=== PATIENT | female | born 1985 | race Caucasian/White ===

== ENCOUNTER 2016-07-09 07:28 | Emergency (ER) | payer OTHER ==
[2016-07-09 08:01] VITALS: BP 115/76; PULSE 93; RESP 18; TEMP 100.6
[2016-07-09] MEDS ORDERED: ONDANSETRON 4 MG ODT STARTER PACK 2 TAB BTL PO STA (08:18)
[2016-07-09] MEDS ORDERED: ONDANSETRON ODT 4 MG TAB PO STA (08:18)
--- NOTE | 2016-07-09 08:21 | ED ---
General Adult HPI - General Chief complaint: Nausea/Vomiting/Diarrhea Stated complaint: cough,chills,vomiting Time Seen by Provider: 07/09/16 08:00 Source: patient, family, RN notes reviewed Mode of arrival: ambulatory Limitations: no limitations - History of Present Illness Initial comments: This is a 31-year-old female who presents to the emergency department stating that she started vomiting at 2:30 this morning has vomited a few times. Patient states she thinks she has a low-grade fever as well. Patient states she has no abdominal pain she has had no episode of diarrhea however. Patient denies any chest pain difficulty breathing or shortness of breath. Patient denies any headache patient denies numbness weakness. Patient denies any dysuria hematuria urinary frequency. Patient does not feel lightheaded dizzy or near syncopal. Patient denies headache - Related Data Home Medications Medication Instructions Recorded Confirmed No Known Home Medications [No 07/09/16 07/09/16 Known Home Medications] Allergies Allergy/AdvReac Type Severity Reaction Status Date / Time No Known Allergies Allergy Verified 07/09/16 08:01 Review of Systems ROS Statement: Those systems with pertinent positive or pertinent negative responses have been documented in the HPI. ROS Other: All systems not noted in ROS Statement are negative. Past Medical History Past Medical History: No Reported History Additional Past Medical History / Comment(s): kidney stones, gest DM- diet controlled History of Any Multi-Drug Resistant Organisms: None Reported Past Surgical History: Tonsillectomy Additional Past Surgical History / Comment(s): at age 7 Past Anesthesia/Blood Transfusion Reactions: No Reported Reaction Past Psychological History: Anxiety, Bipolar, Depression Additional Psychological History / Comment(s): no currently medicated Smoking Status: Former smoker Past Alcohol Use History: None Reported Past Drug Use History: None Reported - Past Family History Mother Family Medical History: Diabetes Mellitus General Exam - General Exam Comments Initial Comments: GENERAL: Patient is well-developed and well-nourished. Patient is nontoxic and well- hydrated and is in no acute distress. ENT: Neck is soft and supple. No significant lymphadenopathy is noted. Oropharynx is clear. Moist mucous membranes. Neck has full range of motion without eliciting any pain. EYES: The sclera were anicteric and conjunctiva were pink and moist. PULMONARY: Unlabored respirations. Good breath sounds bilaterally. CARDIOVASCULAR: There is a regular rate and rhythm without any murmurs gallops or rubs. ABDOMEN: Soft and nontender with normal bowel sounds. No palpable organomegaly was noted. There is no palpable pulsatile mass. SKIN: Skin is clear with no lesions or rashes and otherwise unremarkable. NEUROLOGIC: Patient is alert and oriented x3. Cranial nerves II through XII are grossly intact. Motor and sensory are also intact. Normal speech, volume and content. Symmetrical smile. MUSCULOSKELETAL: Normal extremities with adequate strength and full range of motion. No lower extremity swelling or edema. No calf tenderness. LYMPHATICS: No significant lymphadenopathy is noted PSYCHIATRIC: Normal psychiatric evaluation. Limitations: no limitations Course Vital Signs 07/09/16 07:58 Temperature 100.6 F H Pulse Rate 93 Respiratory 18 Rate Blood Pressure 115/76 O2 Sat by Pulse 96 Oximetry Disposition Clinical Impression: Gastroenteritis Disposition: HOME SELF-CARE Condition: Good Instructions: Gastroenteritis (ED) Additional Instructions: Patient should take Zofran as prescribed. Patient should take Tylenol or Motrin for any fevers after she is holding down fluids. Referrals: Eric Parra MD [Primary Care Provider] - 1-2 days Time of Disposition: 08:21
== END 2016-07-09 08:42 | disposition home or self-care (01) ==
LOC: EC 07:28
DX: K52.9 Noninfective gastroenteritis and colitis, unspecified (principal); Z87.442 Personal history of urinary calculi
CPT/HCPCS: 99283; S0119; 99282

== ENCOUNTER 2016-07-13 07:18 | Emergency (ER) | payer OTHER ==
[2016-07-13 07:52] VITALS: BP 136/85; PULSE 78; RESP 18; TEMP 98.3
[2016-07-13] MEDS ORDERED: predniSONE 50 MG TAB PO STA (08:13)
[2016-07-13] MEDS ORDERED: FAMOTIDINE 20 MG TAB PO STA (08:14)
--- NOTE | 2016-07-13 08:18 | ED ---
Skin/Abscess/FB HPI - General Chief complaint: Skin/Abscess/Foreign Body Stated complaint: RASH Time Seen by Provider: 07/13/16 07:50 Source: patient, RN notes reviewed Mode of arrival: ambulatory Limitations: no limitations - History of Present Illness Initial comments: This is a 31-year-old female who was recently delivered a baby. The onset over last couple days of a itchy erythematous rash that is diffuse over her extremities and her trunk. He gets worse with hot environment. She was seen at an outpatient urgent care and told she may have been bug bites. She states it still very itchy. She is concerned. She does state that she started using a new fabric softener about 2 weeks ago which she never used before otherwise no new materials in her environment including soaps or detergents clothing. complaint: rash - Related Data Home Medications Medication Instructions Recorded Confirmed FLUoxetine HCL [PROzac] 20 mg PO DAILY 07/13/16 07/13/16 lamoTRIgine [LaMICtal] 50 mg PO HS 07/13/16 07/13/16 Previous Rx's Medication Instructions Recorded Famotidine [Pepcid] 20 mg PO BID #14 tablet 07/13/16 predniSONE 20 mg PO BID #10 tab 07/13/16 Allergies Allergy/AdvReac Type Severity Reaction Status Date / Time No Known Allergies Allergy Verified 07/13/16 07:56 Review of Systems ROS Statement: Those systems with pertinent positive or pertinent negative responses have been documented in the HPI. ROS Other: All systems not noted in ROS Statement are negative. Past Medical History Past Medical History: No Reported History Additional Past Medical History / Comment(s): kidney stones, gest DM- diet controlled History of Any Multi-Drug Resistant Organisms: None Reported Past Surgical History: Tonsillectomy Additional Past Surgical History / Comment(s): at age 7 Past Anesthesia/Blood Transfusion Reactions: No Reported Reaction Past Psychological History: Anxiety, Bipolar, Depression Additional Psychological History / Comment(s): no currently medicated Smoking Status: Former smoker Past Alcohol Use History: None Reported Past Drug Use History: None Reported - Past Family History Mother Family Medical History: Diabetes Mellitus General Exam - General Exam Comments Initial Comments: This a well-developed well-nourished awake alert oriented x3 female Limitations: no limitations General appearance: alert, anxious Head exam: Present: atraumatic, normocephalic, normal inspection Eye exam: Present: normal appearance, PERRL, EOMI. Absent: scleral icterus, conjunctival injection, periorbital swelling ENT exam: Present: normal exam, mucous membranes moist Neck exam: Present: normal inspection. Absent: tenderness, meningismus, lymphadenopathy Respiratory exam: Present: normal lung sounds bilaterally. Absent: respiratory distress, wheezes, rales, rhonchi, stridor Cardiovascular Exam: Present: regular rate, normal rhythm, normal heart sounds. Absent: systolic murmur, diastolic murmur, rubs, gallop, clicks GI/Abdominal exam: Present: soft Extremities exam: Present: full ROM, normal capillary refill Back exam: Present: full ROM, rash noted. Absent: tenderness Neurological exam: Present: alert, oriented X3, CN II-XII intact Psychiatric exam: Present: normal affect, normal mood Skin exam: Present: warm, dry, intact, erythema, other (There is erythematous urticarial type rash seen over the hands the arms the abdominal wall some on the back on the feet consistent with ALLERGIC reaction no evidence of any insect bites.). Absent: normal color Course Vital Signs 07/13/16 07:50 Temperature 98.3 F Pulse Rate 78 Respiratory 18 Rate Blood Pressure 136/85 O2 Sat by Pulse 94 L Oximetry Medical Decision Making - Medical Decision Making The presentation is consistent with a ALLERGIC reaction/urticaria reaction likely to the snuggle fabrics softener she was using to be placed on appropriate medication we did discuss hot versus cold environments and the need to not scratch any itchy areas. Disposition Clinical Impression: Contact dermatitis, Urticaria Disposition: HOME SELF-CARE Condition: Good Instructions: Contact Dermatitis (ED), Urticaria (ED) Additional Instructions: [id number] Benadryl 25 mg every 6 hours as needed cool compresses to any itchy area Prescriptions: Famotidine [Pepcid] 20 mg PO BID #14 tablet predniSONE 20 mg PO BID #10 tab
== END 2016-07-13 08:42 | disposition home or self-care (01) ==
LOC: EC 07:18
DX: R21 Rash and other nonspecific skin eruption (principal); L50.9 Urticaria, unspecified; L25.9 Unspecified contact dermatitis, unspecified cause; F41.0 Panic disorder [episodic paroxysmal anxiety]; F31.9 Bipolar disorder, unspecified; Z87.891 Personal history of nicotine dependence; Z79.899 Other long term (current) drug therapy
CPT/HCPCS: 99282; J7512

== ENCOUNTER → 2016-07-22 | Outpatient (CLI) | payer OTHER ==
[2016-07-22 08:49] LABS: Basophils # (A) 0.1 k/uL (0-0.2); Basophils % (A) 1 %; CH 29.4; CHCM 33.7; Eosinophils # (A) 0.2 k/uL (0-0.7); Eosinophils % (A) 2 %; HDW 2.63; HGB 14.3 gm/dL (11.4-16.0); Luc # (Auto) 0.08; Luc % (Auto) 1; Lymphocytes # (A) 2.1 k/uL (1.0-4.8); Lymphocytes % (A) 25 %; MCH 28.6 pg (25.0-35.0); MCHC 32.6 g/dL (31.0-37.0); MCV 87.7 fL (80.0-100.0); Mean Platelet Volume 7.4; Monocytes # (A) 0.5 k/uL (0-1.0); Monocytes % (A) 6 %; Neutrophils # (A) 5.6 k/uL (1.3-7.7); Neutrophils % (A) 65 %; RBC 5.01 m/uL (3.80-5.40); RDW 12.8 % (11.5-15.5); WBC 8.5 k/uL (3.8-10.6); WBC (Perox) 8.63
== END | disposition home or self-care (01) ==
LOC: LABPAT 08:23
PROVIDERS: ATTEND Obstetrics & Gynecology
DX: Z01.812 Encounter for preprocedural laboratory examination (principal)
CPT/HCPCS: 85025

== ENCOUNTER 2016-08-11 06:59 | Day surgery (SDC) | payer OTHER ==
[2016-07-25 10:05] VITALS: BMI 37.4
[~2016-08-11 06:59] MED LIST: DEXAMETHASONE SOD PHOSPHATE 10 MG/ML 1 ML VIAL IV ONE; LACTATED RINGERS 1,000 ML IV SCH; LIDOCAINE 1% 20 ML VIAL (10MG/ML) FOR IV START INTRADERMA PRN; MIDAZOLAM 2 MG/2 ML VIAL IV PRN; Pre Op ABX Message 1 EACH MISC MISCELLANE ONE; SCOPOLAMINE 1.5MG/72HR PATCH TRANSDERM ONE
--- NOTE | 2016-08-11 07:45 | P.HPOB ---
History of Present Illness H&P Date: 08/11/16 Chief Complaint: Family planning Patient is a 31-year-old female was completed family planning desires permanent sterilization. Risks/benefits/alternatives to laparoscopic tubal occlusion were discussed with the patient in detail and all questions were answered for her prior to proceeding to the operating room. Physical exam vital signs are stable and afebrile. Heart regular, lungs clear, extremities without pain. Abdomen soft positive bowel sounds are noted. Assessment family planning. Plan laparoscopic tubal occlusion with Filshie clips. Past Medical History Past Medical History: No Reported History Additional Past Medical History / Comment(s): Hx kidney stones, gest DM- diet controlled.BRONCHITIS History of Any Multi-Drug Resistant Organisms: None Reported Past Surgical History: Tonsillectomy Additional Past Surgical History / Comment(s): at age 7 Past Anesthesia/Blood Transfusion Reactions: No Reported Reaction Past Psychological History: Anxiety, Bipolar, Depression Additional Psychological History / Comment(s): no currently medicated Smoking Status: Former smoker Past Alcohol Use History: None Reported Additional Past Alcohol Use History / Comment(s): Smoked 1 PPD for 1 yr, quit 2006 Past Drug Use History: None Reported - Past Family History Mother Family Medical History: Diabetes Mellitus Medications and Allergies Home Medications Medication Instructions Recorded Confirmed Type FLUoxetine HCL [PROzac] 20 mg PO DAILY 07/13/16 07/25/16 History lamoTRIgine [LaMICtal] 50 mg PO HS 07/13/16 07/25/16 History Allergies Allergy/AdvReac Type Severity Reaction Status Date / Time No Known Allergies Allergy Verified 07/25/16 09:49 Exam Osteopathic Statement: *. No significant issues noted on an osteopathic structural exam other than those noted in the History and Physical/Consult. - OBG Physical Exam Breast: both: normal (no masses) Abdomen: bowel sounds normal, no diffuse tenderness, no bruit present, no guarding noted, no hepatomegaly, no splenomegaly, no mass Vulva: both: normal Vagina: normal moisture, no discharge Cervix: no lesion, no discharge Uterus: normal size, normal contour Adnexa: both: normal Anus/Rectum: normal perianal skin, no rectal mass, no hemorrhoids, heme negative
[2016-08-11] MEDS: ONDANSETRON 4 MG/2 ML VIAL IVP ONE ×2 (08:21→09:29)
[2016-08-11] MEDS ORDERED: SUCCINYLCHOLINE CHLORIDE 100 MG/5 ML SYR IV ONE (08:32)
[2016-08-11] MEDS ORDERED: LIDOCAINE 1% INJ 10MG/ML (20 ML MDV) ONE (08:32)
[2016-08-11] MEDS ORDERED: KETOROLAC 30 MG/ML 1 ML VIAL ONE (08:32)
[2016-08-11] MEDS ORDERED: MIDAZOLAM 2 MG/2 ML VIAL ONE (08:32)
[2016-08-11] MEDS ORDERED: fentaNYL (PF) 50 MCG/ML 2 ML AMP ONE (08:32)
[2016-08-11] MEDS ORDERED: PROPOFOL 10 MG/ML 20 ML VIAL IV ONE (08:32)
[2016-08-11] MEDS ORDERED: BUPIVACAINE (PF) 0.25% 30 ML VIAL SQ ONE ×2 (08:51→08:55)
--- NOTE | 2016-08-11 09:12 | P.OP ---
Date of Procedure: 08/11/16 Preoperative Diagnosis: Family planning Postoperative Diagnosis: Same Procedure(s) Performed: Laparoscopic tubal occlusion with Filshie clips Anesthesia: DINH Surgeon: Domenico Barreto Estimated Blood Loss (ml): 3 Urine output (ml): 20 Pathology: none sent Condition: stable Disposition: same day Operative Findings: Normal uterus, tubes, ovaries Description of Procedure: Patient was taken to the operating suite where a general anesthetic was found be adequate. She was prepped and draped in the normal sterile fashion placed in the dorsal lithotomy position. Initially a speculum was inserted in the vagina and the anterior lip cervix was identified and grasped with single-tooth tenaculum. [place] manipulator was present inserted and the speculum was removed. Red rubber catheter was then used to drain the bladder of urine and then was removed. Allis were then changed and attention was turned to the abdominal portion of the procedure. Approximately 4 mL of quarter percent Marcaine were then injected periumbilically. Through this injected anesthetic a 5 mm skin incision was made and through this incision under direct visualization with an optical trocar and sleeve the camera was inserted. Once peritoneal placement was assured gas was allowed to fully insufflate the abdomen and patient was placed in steep Trendelenburg position. A second port and sleeve were then inserted 3 cm above the pubic symphysis in the midline and this was 8 mm incision. Through this incision an 8 mm trocar and sleeve were inserted under direct visualization. Observations of the pelvis was then done seeing no gross abnormalities first the right tube than the left tube had a Filshie clip applied 2 cm from uterine cornu. C no bleeding from the mesosalpinx instruments were removed and gas was allowed to fully expel from the abdomen. 5 deep breaths were provided during this process. Once this was completed trochars removed and 4-0 Vicryl was used to close incision subcuticularly. The remaining 6 mL of quarter percent Marcaine were then injected around these incisions. Sponge, lap, needle counts were all correct 2. Patient was taken to the recovery room in stable condition. Plan - Discharge Summary New Discharge Prescriptions: Acetaminophen-Codeine 300-30mg [Tylenol #3] 1 tab PO Q4H PRN #30 tablet PRN Reason: Pain Ibuprofen [Motrin] 600 mg PO Q6HR PRN #30 tab PRN Reason: Pain Discharge Medication List FLUoxetine HCL [PROzac] 20 mg PO DAILY 07/13/16 [History] lamoTRIgine [LaMICtal] 50 mg PO HS 07/13/16 [History] Acetaminophen-Codeine 300-30mg [Tylenol #3] 1 tab PO Q4H PRN #30 tablet [Rx] Ibuprofen [Motrin] 600 mg PO Q6HR PRN #30 tab 08/11/16 [Rx] Follow up Appointment(s)/Referral(s): Domenico Barreto DO [Doctor of Osteopathic Medicine] - 2 Weeks Activity/Diet/Wound Care/Special Instructions: No heavy lifting, limit stairs and driving and pelvic rest. If any high temperatures, heavy bleeding, or severe pain call my office
[2016-08-11 09:21] VITALS: TEMP 97.6
[2016-08-11] MEDS: HYDROmorphone 1 MG/ML 1 ML SYRINGE IVP PRN ×4 (09:25→10:07)
[2016-08-11] MEDS ORDERED: hydrALAZINE HCL 20 MG/ML 1 ML VIAL IVP ONE (10:06)
[2016-08-11] MEDS ORDERED: METOPROLOL TARTRATE 5 MG/5 ML VIAL IVP ONE (10:17)
[2016-08-11 10:31] VITALS: RESP 16
[2016-08-11 12:13] VITALS: BP 145/91; PULSE 70
== END 2016-08-11 12:16 | disposition home or self-care (01) ==
LOC: OR 06:59
PROVIDERS: ATTEND Obstetrics & Gynecology
DX: Z30.2 Encounter for sterilization (principal); E11.9 Type 2 diabetes mellitus without complications; F41.9 Anxiety disorder, unspecified; F31.9 Bipolar disorder, unspecified; F32.9 Major depressive disorder, single episode, unspecified; Z87.891 Personal history of nicotine dependence; Z79.899 Other long term (current) drug therapy
CPT/HCPCS: 81025; 58671; J2250; J0360; J1100; J2405; J2001; J3010; J1885; J1170; J0330; J2704

== ENCOUNTER → 2017-02-09 | Outpatient (CLI) | payer OTHER ==
[2017-02-09 12:00] LABS: CH 30.8; CHCM 34.6; HCT 41.8 % (34.0-46.0); HDW 2.75; MCH 30.1 pg (25.0-35.0); MCHC 33.6 g/dL (31.0-37.0); MCV 89.5 fL (80.0-100.0); Mean Platelet Volume 7.5; RBC 4.67 m/uL (3.80-5.40); RDW 12.8 % (11.5-15.5); WBC 7.2 k/uL (3.8-10.6)
--- NOTE | 2017-02-09 12:34 | US ---
EXAMINATION TYPE: US pelvic complete DATE OF EXAM: 02/09/2017 COMPARISON: NONE CLINICAL HISTORY: R10.2 Pelvic pain, N92.1 Menorrhagia w/irregular. Heavy, painful menses, irregular menses, tubal ligation 08/05 TECHNIQUE: Transabdominal (TA) Date of LMP: 01/23/17 EXAM MEASUREMENTS: Uterus: 8.9 x 4.2 x 5.2 cm Endometrial Stripe: 0.4 cm Right Ovary: 4.7 x 1.7 x 3.4 cm Left Ovary: 3.2 x 1.9 x 4.0 cm 1. Uterus: Anteverted appears wnl 2. Endometrium: appears wnl 3. Right Ovary: appears wnl 4. Left Ovary: dominant follicle = 1.4 x 1.5 x1.3cm 5. Bilateral Adnexa: wnl 6. Posterior cul-de-sac: wnl IMPRESSION: 1. No distinct abnormality appreciated at this time. Dominant follicle left ovary.
== END | disposition home or self-care (01) ==
LOC: RADUSWWP 11:02
PROVIDERS: ATTEND Obstetrics & Gynecology
DX: N92.1 Excessive and frequent menstruation with irregular cycle (principal); R10.2 Pelvic and perineal pain
CPT/HCPCS: 76856; 82670; 83001; 83002; 84146; 84443; 85027

== ENCOUNTER 2017-03-23 04:57 | Emergency (ER) | payer OTHER ==
--- NOTE | 2017-03-23 05:41 | ED ---
General Adult HPI - General Chief complaint: Abdominal Pain Stated complaint: back pain Time Seen by Provider: 03/23/17 05:07 Source: patient, RN notes reviewed Mode of arrival: ambulatory Limitations: no limitations - History of Present Illness Initial comments: 31-year-old female with no history of kidney stones presents for evaluation of right flank pain, radiating to the groin and right leg. This woke the patient from sleep. 10 out of 10. Pain was sharp in nature. Patient states this was similar to her previous kidney stones perches not had one in over a year. Denies any dysuria. Denies fever or chills. Denies vaginal discharge. Normal bowel movement within the last 24 hours. No vomiting she has had some nausea. No chest pain shortness of breath. At the time my evaluation patient's pain is improved, 2 out of 10. She does not know if she passed the stone in her urine. No other complaints. - Related Data Previous Rx's Medication Instructions Recorded Ibuprofen [Motrin] 600 mg PO Q8HR PRN #24 tab 03/23/17 Sulfamethox-Tmp 800-160Mg [Bactrim 1 tab PO Q12HR #14 tab 03/23/17 DS 800-160 mg] Tamsulosin HCl [Flomax] 0.4 mg PO DAILY #14 cap 03/23/17 Allergies Allergy/AdvReac Type Severity Reaction Status Date / Time No Known Allergies Allergy Verified 08/11/16 08:07 Review of Systems ROS Statement: Those systems with pertinent positive or pertinent negative responses have been documented in the HPI. ROS Other: All systems not noted in ROS Statement are negative. Past Medical History Past Medical History: No Reported History Additional Past Medical History / Comment(s): Hx kidney stones, gest DM- diet controlled.BRONCHITIS History of Any Multi-Drug Resistant Organisms: None Reported Past Surgical History: Tonsillectomy, Tubal Ligation Additional Past Surgical History / Comment(s): at age 7 Past Anesthesia/Blood Transfusion Reactions: No Reported Reaction Past Psychological History: Anxiety, Bipolar, Depression Smoking Status: Former smoker Past Alcohol Use History: Rare Past Drug Use History: None Reported - Past Family History Mother Family Medical History: Diabetes Mellitus General Exam Limitations: no limitations General appearance: alert, in no apparent distress Head exam: Present: atraumatic, normocephalic Eye exam: Present: normal appearance, PERRL ENT exam: Present: normal exam Neck exam: Present: normal inspection Respiratory exam: Present: normal lung sounds bilaterally, respiratory distress Cardiovascular Exam: Present: regular rate, normal rhythm GI/Abdominal exam: Present: soft. Absent: distended, tenderness Extremities exam: Present: normal inspection, full ROM Back exam: Present: normal inspection, CVA tenderness (R) Neurological exam: Present: alert, oriented X3 Psychiatric exam: Present: normal affect, normal mood Skin exam: Present: warm, dry, intact. Absent: cyanosis, diaphoretic Course Vital Signs 03/23/17 05:01 Temperature 98.4 F Pulse Rate 69 Respiratory 18 Rate Blood Pressure 133/82 O2 Sat by Pulse 98 Oximetry - Reevaluation(s) Reevaluation #1: 03/23/17 06:06 On reevaluation, patient is completely pain-free. She received no medication the emergency department. Medical Decision Making - Medical Decision Making 31-year-old female with history of kidney stones presents with signs and symptoms consistent with renal colic. Patient is pain-free on reevaluation. No imaging will be obtained at this time. Urinalysis shows 13 wbc's, there is significant amount of squamous cell. And rare bacteria. Urine culture is pending. No significant hematuria. Patient will be started on Flomax, given pain control, she will be empirically treated for UTI. She will follow-up with her primary care physician. Return to emergency department with worsening pain. Diagnosis: Renal colic, resolved - Lab Data Lab Results 03/23/17 03/23/17 Range/Units 05:15 05:15 Urine Color Yellow Urine Appearance Cloudy H (Clear) Urine pH 5.0 (5.0-8.0) Ur Specific [place] 1.021 (1.001-1.035) Urine Protein Trace H (Negative) Urine Glucose (UA) Negative (Negative) Urine Ketones Negative (Negative) Urine Blood Negative (Negative) Urine Nitrite Negative (Negative) Urine Bilirubin Negative (Negative) Urine Urobilinogen <2.0 (<2.0) mg/dL Ur Leukocyte Esterase Large H (Negative) Urine RBC 5 (0-5) /hpf Urine WBC 13 H (0-5) /hpf Ur Squamous Epith Cells 39 H (0-4) /hpf Urine Bacteria Rare H (None) /hpf Hyaline Casts 3 H (0-2) /lpf Urine Mucus Rare H (None) /hpf Urine HCG, Qual Not Detected (Not Detectd) Disposition Clinical Impression: Renal colic on right side Disposition: HOME SELF-CARE Condition: Good Instructions: Renal Colic (ED) Prescriptions: Ibuprofen [Motrin] 600 mg PO Q8HR PRN #24 tab PRN Reason: Pain Sulfamethox-Tmp 800-160Mg [Bactrim DS 800-160 mg] 1 tab PO Q12HR #14 tab Tamsulosin HCl [Flomax] 0.4 mg PO DAILY #14 cap Referrals: Eric Parra MD [Primary Care Provider] - 1-2 days
[2017-03-23 05:45] LABS: Appearance,Urine Cloudy (Clear); Bacteria,Urine Rare /hpf; Bilirubin,Urine Negative (Negative); Glucose,Urine (UA) Negative (Negative); Ketones,Urine Negative (Negative); Leukocyte Esterase,Urine Large (Negative); Mucus,Urine Rare /hpf; Nitrite,Urine Negative (Negative); Particle Count 19051; Protein,Urine Trace (Negative); RBC,Urine 5 /hpf (0-5); Specific Gravity,Urine 1.021 (1.001-1.035); Squamous Epithelial Cell,Urine 39 /hpf (0-4); UA Billing (MACRO vs. MICRO) MICRO; Urobilinogen,Urine <2.0 mg/dL (<2.0); WBC,Urine 13 /hpf (0-5)
[2017-03-23 06:26] VITALS: BP 130/97; PULSE 71; RESP 16; TEMP 98.3
== END 2017-03-23 06:22 | disposition home or self-care (01) ==
LOC: EC 04:57
DX: N23 Unspecified renal colic (principal); Z87.891 Personal history of nicotine dependence
CPT/HCPCS: 81001; 81025; 87086; 99284

== ENCOUNTER → 2017-06-08 | Outpatient (CLI) | payer OTHER ==
[2017-06-08 10:22] LABS: Basophils # (A) 0.1 k/uL (0-0.2); Basophils % (A) 1 %; CH 29.6; CHCM 34.1; Eosinophils # (A) 0.1 k/uL (0-0.7); Eosinophils % (A) 1 %; HCT 42.7 % (34.0-46.0); HDW 2.56; HGB 14.3 gm/dL (11.4-16.0); Luc % (Auto) 2; Lymphocytes # (A) 1.9 k/uL (1.0-4.8); Lymphocytes % (A) 29 %; MCH 29.3 pg (25.0-35.0); MCHC 33.5 g/dL (31.0-37.0); MCV 87.4 fL (80.0-100.0); Mean Platelet Volume 7.3; Monocytes # (A) 0.3 k/uL (0-1.0); Monocytes % (A) 5 %; Neutrophils # (A) 4.1 k/uL (1.3-7.7); Neutrophils % (A) 62 %; RBC 4.88 m/uL (3.80-5.40); RDW 13.3 % (11.5-15.5); WBC 6.6 k/uL (3.8-10.6); WBC (Perox) 6.49
== END | disposition home or self-care (01) ==
LOC: LABPAT 09:40
PROVIDERS: ATTEND Obstetrics & Gynecology
DX: Z01.812 Encounter for preprocedural laboratory examination (principal)
CPT/HCPCS: 36415; 85025

== ENCOUNTER → 2017-06-22 | Outpatient (CLI) | payer OTHER ==
--- NOTE | 2017-06-22 11:46 | XR ---
EXAMINATION TYPE: XR chest 2V DATE OF EXAM: 06/22/2017 COMPARISON: NONE TECHNIQUE: PA and lateral views submitted. HISTORY: Cough and congestion FINDINGS: The lungs are clear and there is no pneumothorax, pleural effusion, or focal pneumonia. IMPRESSION: 1. No acute process.
== END | disposition home or self-care (01) ==
LOC: RADXRMAIN 11:16
PROVIDERS: ATTEND Internal Medicine
DX: R05 Cough (principal)
CPT/HCPCS: 71046

== ENCOUNTER 2017-09-24 18:27 | Emergency (ER) | payer OTHER ==
[2017-09-24] MEDS ORDERED: KETOROLAC 30 MG/ML 1 ML VIAL IVP STA (19:47)
[2017-09-24] MEDS ORDERED: ONDANSETRON 4 MG/2 ML VIAL IVP STA (19:47)
[2017-09-24] MEDS ORDERED: SODIUM CHLORIDE 0.9% 1,000 ML IV STA (19:47)
[2017-09-24 20:21] LABS: Basophils % (A) 0 %; Eosinophils # (A) 0.2 k/uL (0-0.7); Eosinophils % (A) 2 %; HCT 44.5 % (34.0-46.0); HGB 15.2 gm/dL (11.4-16.0); Lymphocytes % (A) 30 %; MCH 29.3 pg (25.0-35.0); MCHC 34.1 g/dL (31.0-37.0); Mean Platelet Volume 7.1; Monocytes # (A) 0.5 k/uL (0-1.0); Monocytes % (A) 5 %; Neutrophils # (A) 6.2 k/uL (1.3-7.7); Neutrophils % (A) 62 %; Platelet Count 342 k/uL (150-450); RBC 5.18 m/uL (3.80-5.40); RDW 12.4 % (11.5-15.5)
[2017-09-24 20:24] LABS: Appearance,Urine Clear (Clear); Bacteria,Urine Rare /hpf; Bilirubin,Urine Negative (Negative); Blood,Urine Small (Negative); Color,Urine Yellow; Glucose,Urine (UA) Negative (Negative); Ketones,Urine Negative (Negative); Leukocyte Esterase,Urine Small (Negative); Nitrite,Urine Negative (Negative); PH, Urine 6.5 (5.0-8.0); Protein,Urine Negative (Negative); RBC,Urine 4 /hpf (0-5); Specific Gravity,Urine 1.019 (1.001-1.035); Squamous Epithelial Cell,Urine 3 /hpf (0-4); WBC,Urine 8 /hpf (0-5)
[2017-09-24 20:29] LABS: ALT 28 U/L (9-52); AST 21 U/L (14-36); Albumin 4.4 g/dL (3.5-5.0); Alkaline Phosphatase 64 U/L (38-126); Amylase 73 U/L (30-110); Anion Gap 14 mmol/L; Blood Urea Nitrogen 18 mg/dL (7-17); Calcium 9.4 mg/dL (8.4-10.2); Carbon Dioxide 26 mmol/L (22-30); Chloride 103 mmol/L (98-107); Glucose 87 mg/dL (74-99); Lipase 204 U/L (23-300); Potassium 4.3 mmol/L (3.5-5.1); Sodium 143 mmol/L (137-145); Total Bilirubin 0.3 mg/dL (0.2-1.3); Total Protein 7.3 g/dL (6.3-8.2)
--- NOTE | 2017-09-24 20:41 | XR ---
EXAMINATION TYPE: XR KUB DATE OF EXAM: 09/24/2017 COMPARISON: NONE INDICATION: Abdomen pain right flank pain TECHNIQUE: Single view abdomen upright view FINDINGS: There is a normal bowel gas pattern. Psoas margins are normal. No suspicious calcifications are evident. No organomegaly is present. Surgical clips are within the pelvis. IMPRESSION: 1. Unremarkable Abdomen
[2017-09-24 20:53] VITALS: BP 121/54; PULSE 82; RESP 20; TEMP 98.6
[2017-09-24] MEDS ORDERED: ACET/COD 300 MG/30 MG STARTER PACK 6 TAB BTL PO STA (22:00)
--- NOTE | 2017-09-24 22:01 | ED ---
Abdominal Pain HPI - General Chief Complaint: Abdominal Pain Stated Complaint: flank pain Time Seen by Provider: 09/24/17 19:47 Source: patient, RN notes reviewed Mode of arrival: ambulatory Limitations: no limitations - History of Present Illness Initial Comments: 32-year-old female presents emergency Department chief complaint abdominal pain , flank pain. Patient has a history kidney stones believes that she has a kidney stone currently. Patient states that it hurts on the right side consistent with her prior history. Patient admits to nausea and vomiting. No diarrhea no constipation no fevers no chills no chest pain or shortness breath. - Related Data Previous Rx's Medication Instructions Recorded Ibuprofen [Motrin] 600 mg PO Q6HR PRN #30 tab 06/15/17 Ondansetron Odt [Zofran Odt] 4 mg PO Q8HR PRN #14 tab 06/15/17 Acetaminophen-Codeine 300-30mg 1 tab PO Q4H PRN #20 tablet 09/24/17 [Tylenol #3] Ciprofloxacin HCl [Cipro] 500 mg PO Q12HR #14 tablet 09/24/17 Ibuprofen [Motrin] 600 mg PO Q8HR PRN #30 tab 09/24/17 Ondansetron Odt [Zofran Odt] 4 mg PO Q8HR PRN #10 tab 09/24/17 Allergies Allergy/AdvReac Type Severity Reaction Status Date / Time No Known Allergies Allergy Verified 09/24/17 18:31 Review of Systems ROS Statement: Those systems with pertinent positive or pertinent negative responses have been documented in the HPI. ROS Other: All systems not noted in ROS Statement are negative. Past Medical History Past Medical History: No Reported History Additional Past Medical History / Comment(s): Hx kidney stones, gest DM- diet controlled.BRONCHITIS History of Any Multi-Drug Resistant Organisms: None Reported Past Surgical History: Tonsillectomy, Tubal Ligation Additional Past Surgical History / Comment(s): at age 7 Past Anesthesia/Blood Transfusion Reactions: No Reported Reaction Past Psychological History: Anxiety, Bipolar, Depression Smoking Status: Former smoker Past Alcohol Use History: Occasional Past Drug Use History: None Reported - Past Family History Mother Family Medical History: Diabetes Mellitus General Exam Limitations: no limitations General appearance: alert, in no apparent distress Head exam: Present: atraumatic, normocephalic, normal inspection Respiratory exam: Present: normal lung sounds bilaterally. Absent: respiratory distress, wheezes, rales, rhonchi, stridor Cardiovascular Exam: Present: regular rate, normal rhythm, normal heart sounds. Absent: systolic murmur, diastolic murmur, rubs, gallop, clicks GI/Abdominal exam: Present: soft, normal bowel sounds. Absent: distended, tenderness, guarding, rebound, rigid Back exam: Present: CVA tenderness (R). Absent: CVA tenderness (L) Skin exam: Present: warm, dry, intact, normal color. Absent: rash Course Vital Signs 09/24/17 09/24/17 18:29 20:52 Temperature 98.0 F 98.6 F Pulse Rate 74 82 Respiratory 18 20 Rate Blood Pressure 143/88 121/54 O2 Sat by Pulse 98 98 Oximetry Medical Decision Making - Medical Decision Making 32-year-old female presented for flank pain. She has a history kidney stones. She does have trace blood, trace bacteria. She'll be treated for suspected kidney stone will be given antibiotics secondary to 8 white cells. Patient agrees this plan d - Lab Data Result diagrams: 09/24/17 20:09 09/24/17 20:09 Lab Results 09/24/17 09/24/17 09/24/17 Range/Units 20:09 20:09 20:09 WBC 10.0 (3.8-10.6) k/uL RBC 5.18 (3.80-5.40) m/uL Hgb 15.2 (11.4-16.0) gm/dL Hct 44.5 (34.0-46.0) % MCV 86.0 (80.0-100.0) fL MCH 29.3 (25.0-35.0) pg MCHC 34.1 (31.0-37.0) g/dL RDW 12.4 (11.5-15.5) % Plt Count 342 (150-450) k/uL Neutrophils % 62 % Lymphocytes % 30 % Monocytes % 5 % Eosinophils % 2 % Basophils % 0 % Neutrophils # 6.2 (1.3-7.7) k/uL Lymphocytes # 3.0 (1.0-4.8) k/uL Monocytes # 0.5 (0-1.0) k/uL Eosinophils # 0.2 (0-0.7) k/uL Basophils # 0.0 (0-0.2) k/uL Sodium 143 (137-145) mmol/L Potassium 4.3 (3.5-5.1) mmol/L Chloride 103 (98-107) mmol/L Carbon Dioxide 26 (22-30) mmol/L Anion Gap 14 mmol/L BUN 18 H (7-17) mg/dL Creatinine 0.70 (0.52-1.04) mg/dL Est GFR (CKD-EPI)AfAm >90 (>60 ml/min/1.73 sqM) Est GFR (CKD-EPI)NonAf >90 (>60 ml/min/1.73 sqM) Glucose 87 (74-99) mg/dL Calcium 9.4 (8.4-10.2) mg/dL Total Bilirubin 0.3 (0.2-1.3) mg/dL AST 21 (14-36) U/L ALT 28 (9-52) U/L Alkaline Phosphatase 64 (38-126) U/L Total Protein 7.3 (6.3-8.2) g/dL Albumin 4.4 (3.5-5.0) g/dL Amylase 73 (30-110) U/L Lipase 204 (23-300) U/L Urine Color Yellow Urine Appearance Clear (Clear) Urine pH 6.5 (5.0-8.0) Ur Specific [place] 1.019 (1.001-1.035) Urine Protein Negative (Negative) Urine Glucose (UA) Negative (Negative) Urine Ketones Negative (Negative) Urine Blood Small H (Negative) Urine Nitrite Negative (Negative) Urine Bilirubin Negative (Negative) Urine Urobilinogen 2.0 (<2.0) mg/dL Ur Leukocyte Esterase Small H (Negative) Urine RBC 4 (0-5) /hpf Urine WBC 8 H (0-5) /hpf Ur Squamous Epith Cells 3 (0-4) /hpf Urine Bacteria Rare H (None) /hpf Disposition Clinical Impression: Flank pain, UTI (urinary tract infection), Nephrolithiasis Disposition: HOME SELF-CARE Condition: Stable Instructions: Abdominal Pain (ED) Additional Instructions: Please return to the Emergency Department if symptoms worsen or any other concerns. Prescriptions: Acetaminophen-Codeine 300-30mg [Tylenol #3] 1 tab PO Q4H PRN #20 tablet PRN Reason: pain Ciprofloxacin HCl [Cipro] 500 mg PO Q12HR #14 tablet Ibuprofen [Motrin] 600 mg PO Q8HR PRN #30 tab PRN Reason: Pain Ondansetron Odt [Zofran Odt] 4 mg PO Q8HR PRN #10 tab PRN Reason: Nausea Referrals: Eric Parra MD [Primary Care Provider] - 1-2 days Jakub Ellsworth MD [STAFF PHYSICIAN] - 1-2 days Time of Disposition: 22:00
== END 2017-09-24 22:12 | disposition home or self-care (01) ==
LOC: EC 18:27
DX: N39.0 Urinary tract infection, site not specified (principal); N20.0 Calculus of kidney; R10.9 Unspecified abdominal pain; Z87.891 Personal history of nicotine dependence; Z98.51 Tubal ligation status
CPT/HCPCS: 99284; 96374; 96375; 96361 ×2; 36415; 80053; 82150; 83690; 85025; 81001; 87086; 74018; J2405; J1885

== ENCOUNTER → 2017-09-27 | Outpatient (CLI) | payer OTHER ==
--- NOTE | 2017-09-27 17:14 | CT ---
EXAMINATION TYPE: CT abdomen pelvis wo con DATE OF EXAM: 09/27/2017 COMPARISON: 06/12/2015 HISTORY: Right flank and right lower quadrant pain. Microscopic hematuria. History of renal stones. CT DLP: 1063.8 mGycm Automated exposure control for dose reduction was used. TECHNIQUE: Helical acquisition of images was performed from the lung bases through the pelvis. FINDINGS: Lung bases are clear. There is no pleural effusion. There is no pericardial effusion. Liver spleen pancreas gallbladder appear normal. Bile ducts are not dilated. There is no adrenal mass . Kidneys have normal size and contour. I see no hydronephrosis. Ureters are not dilated. There is no retroperitoneal adenopathy. There is no ascites. There is no sign of free air. I see no intestinal w all thickening. There are no dilated loops. Appendix appears normal. There are surgical clips apparen tly from tubal ligation. Uterus is anteverted. I see no bony destructive process. There is a 1 mm mike cification in the posterior left kidney. IMPRESSION: THERE IS CLEARING OF THE RIGHT-SIDED HYDRONEPHROSIS AND URETERAL CALCULUS COMPARED TO OLD EXAM. THERE IS CLEARING OF SMALL RIGHT RENAL CALCULI COMPARED TO OLD EXAM. NO SIGN OF RENAL OBSTRUCTION. NORMAL APPENDIX.
== END | disposition home or self-care (01) ==
LOC: RADCTMAIN 16:47
PROVIDERS: ATTEND Urology
DX: N20.0 Calculus of kidney (principal)
CPT/HCPCS: 74176

== ENCOUNTER → 2017-10-09 | Outpatient (CLI) | payer OTHER ==
--- NOTE | 2017-10-09 15:22 | XR ---
Right hip HISTORY: Low back pain, right hip pain 2 views of the right hip Bone mineralization, joint spaces and alignment are maintained. IMPRESSION: No fracture or dislocation. Unremarkable right hip.
--- NOTE | 2017-10-09 15:24 | XR ---
Lumbosacral spine HISTORY: Low back pain 5 views of the lumbosacral spine There is a mild levoscoliosis centered at L2. [place] metallic object is superimposed over the L3 vert ebral body in the frontal exam and may represent fallopian tubal ligation clip. There is no spondylol ysis or spondylolisthesis. Multilevel spondylosis is present. Lumbar vertebral bodies show preserved height and bone mineralization. IMPRESSION: Mild degenerative disc disease. Possible scoliosis.
== END | disposition home or self-care (01) ==
LOC: RADXRMAIN 14:27
PROVIDERS: ATTEND Internal Medicine
DX: M51.37 Other intervertebral disc degeneration, lumbosacral region (principal); M19.90 Unspecified osteoarthritis, unspecified site
CPT/HCPCS: 72110; 73502

== ENCOUNTER 2018-08-04 00:54 | Emergency (ER) | payer OTHER ==
[2018-08-04] MEDS ORDERED: SODIUM CHLORIDE 0.9% 1,000 ML IV ONE (01:03)
[2018-08-04] MEDS ORDERED: KETOROLAC 30 MG/ML 1 ML VIAL IVP ONE (01:04)
--- NOTE | 2018-08-04 01:34 | ED ---
Fever HPI - General Chief Complaint: Fever Stated Complaint: flu symptoms Time Seen by Provider: 08/04/18 01:03 Source: patient Mode of arrival: ambulatory Limitations: no limitations - History of Present Illness Initial Comments: Terri is a previously healthy 33-year-old female presents the emergency department today for evaluation of bodyaches subjective fever, chills and sore throat. Patient reports that [id number] was diagnosed with influenza yesterday and she is concerned she may have influenza and stated that if she does have a she wants to be treated early. Patient reports some mild nonproductive cough no chest pain or shortness of breath. - Related Data Previous Rx's Medication Instructions Recorded Ibuprofen [Motrin] 600 mg PO Q6HR PRN #30 tab 06/15/17 Ondansetron Odt [Zofran Odt] 4 mg PO Q8HR PRN #14 tab 06/15/17 Acetaminophen-Codeine 300-30mg 1 tab PO Q4H PRN #20 tablet 09/24/17 [Tylenol #3] Ciprofloxacin HCl [Cipro] 500 mg PO Q12HR #14 tablet 09/24/17 Ibuprofen [Motrin] 600 mg PO Q8HR PRN #30 tab 09/24/17 Ondansetron Odt [Zofran Odt] 4 mg PO Q8HR PRN #10 tab 09/24/17 Allergies Allergy/AdvReac Type Severity Reaction Status Date / Time No Known Allergies Allergy Verified 08/04/18 01:00 Review of Systems ROS Statement: Those systems with pertinent positive or pertinent negative responses have been documented in the HPI. ROS Other: All systems not noted in ROS Statement are negative. Past Medical History Past Medical History: No Reported History Additional Past Medical History / Comment(s): Hx kidney stones, gest DM- diet controlled.BRONCHITIS History of Any Multi-Drug Resistant Organisms: None Reported Past Surgical History: Tonsillectomy, Tubal Ligation Additional Past Surgical History / Comment(s): at age 7 Past Anesthesia/Blood Transfusion Reactions: No Reported Reaction Past Psychological History: Anxiety, Bipolar, Depression Smoking Status: Former smoker Past Alcohol Use History: Occasional Past Drug Use History: None Reported - Past Family History Mother Family Medical History: Diabetes Mellitus General Exam - General Exam Comments Initial Comments: Physical Exam GENERAL: Patient is well-developed and well-nourished. Patient is nontoxic and well- hydrated and is in no distress. HENT: Normocephalic, Atraumatic. EYES: PERRL, EOMI PULMONARY: Unlabored respirations. No audible rales rhonchi or wheezing was noted. CARDIOVASCULAR: Tachycardic, regular ABDOMEN: Soft and nontender with normal bowel sounds. SKIN: Skin is flushed : Deferred NEUROLOGIC: Patient is alert and oriented x3. Moving all extremities spontaneously MUSCULOSKELETAL: Normal extremities with adequate strength and full range of motion. No lower extremity swelling or edema. No calf tenderness. PSYCHIATRIC: Normal psychiatric evaluation. Limitations: no limitations Limitations: no limitations Course Vital Signs 08/04/18 08/04/18 00:56 02:17 Temperature 100.5 F H 100.2 F H Pulse Rate 95 74 Respiratory 20 16 Rate Blood Pressure 146/98 130/79 O2 Sat by Pulse 99 97 Oximetry Medical Decision Making - Medical Decision Making Patient was seen and evaluated history was obtained from the patient excited patient has not had a fever taken any antipyretics prior to arrival Labs and imaging ordered next line chest x-ray with no evidence of pneumonia next and influenza negative Labs with no significant abnormalities patient feeling better after IV fluids patient will be discharged home with the diagnosis of viral syndrome and advised follow-up for any change in condition return parameters were discussed all questions pertaining care were answered patient discharged home in stable condition - Lab Data Result diagrams: 08/04/18 01:20 08/04/18 01:20 Lab Results 08/04/18 08/04/18 08/04/18 Range/Units 01:20 01:20 01:20 WBC 6.6 (3.8-10.6) k/uL RBC 4.81 (3.80-5.40) m/uL Hgb 14.4 (11.4-16.0) gm/dL Hct 41.7 (34.0-46.0) % MCV 86.6 (80.0-100.0) fL MCH 29.9 (25.0-35.0) pg MCHC 34.5 (31.0-37.0) g/dL RDW 12.4 (11.5-15.5) % Plt Count 242 (150-450) k/uL Neutrophils % 79 % Lymphocytes % 13 % Monocytes % 5 % Eosinophils % 2 % Basophils % 0 % Neutrophils # 5.3 (1.3-7.7) k/uL Lymphocytes # 0.8 L (1.0-4.8) k/uL Monocytes # 0.3 (0-1.0) k/uL Eosinophils # 0.1 (0-0.7) k/uL Basophils # 0.0 (0-0.2) k/uL Sodium 142 (137-145) mmol/L Potassium 4.6 (3.5-5.1) mmol/L Chloride 104 (98-107) mmol/L Carbon Dioxide 30 (22-30) mmol/L Anion Gap 8 mmol/L BUN 16 (7-17) mg/dL Creatinine 0.66 (0.52-1.04) mg/dL Est GFR (CKD-EPI)AfAm >90 (>60 ml/min/1.73 sqM) Est GFR (CKD-EPI)NonAf >90 (>60 ml/min/1.73 sqM) Glucose 102 H (74-99) mg/dL Calcium 9.2 (8.4-10.2) mg/dL Total Bilirubin 0.6 (0.2-1.3) mg/dL AST 23 (14-36) U/L ALT 28 (9-52) U/L Alkaline Phosphatase 52 (38-126) U/L Total Protein 6.6 (6.3-8.2) g/dL Albumin 4.1 (3.5-5.0) g/dL Influenza Type A RNA Not Detected (Not Detectd) Influenza Type B (PCR) Not Detected (Not Detectd) Disposition Clinical Impression: Viral infection Disposition: HOME SELF-CARE Condition: Good Instructions (If sedation given, give patient instructions): Fever in Adults ( ED) Is patient prescribed a controlled substance at d/c from ED?: No Referrals: Eric Parra MD [Primary Care Provider] - 1-2 days
[2018-08-04 01:40] LABS: Basophils % (A) 0 %; Eosinophils # (A) 0.1 k/uL (0-0.7); Eosinophils % (A) 2 %; HCT 41.7 % (34.0-46.0); HGB 14.4 gm/dL (11.4-16.0); Lymphocytes # (A) 0.8 k/uL (1.0-4.8); Lymphocytes % (A) 13 %; MCH 29.9 pg (25.0-35.0); MCHC 34.5 g/dL (31.0-37.0); MCV 86.6 fL (80.0-100.0); Mean Platelet Volume 6.7; Monocytes # (A) 0.3 k/uL (0-1.0); Monocytes % (A) 5 %; Neutrophils # (A) 5.3 k/uL (1.3-7.7); Neutrophils % (A) 79 %; Platelet Count 242 k/uL (150-450); RBC 4.81 m/uL (3.80-5.40); RDW 12.4 % (11.5-15.5); WBC 6.6 k/uL (3.8-10.6)
[2018-08-04 01:43] LABS: ALT 28 U/L (9-52); AST 23 U/L (14-36); Albumin 4.1 g/dL (3.5-5.0); Alkaline Phosphatase 52 U/L (38-126); Anion Gap 8 mmol/L; Blood Urea Nitrogen 16 mg/dL (7-17); Calcium 9.2 mg/dL (8.4-10.2); Carbon Dioxide 30 mmol/L (22-30); Chloride 104 mmol/L (98-107); Glucose 102 mg/dL (74-99); Potassium 4.6 mmol/L (3.5-5.1); Sodium 142 mmol/L (137-145); Total Bilirubin 0.6 mg/dL (0.2-1.3); Total Protein 6.6 g/dL (6.3-8.2)
--- NOTE | 2018-08-04 02:09 | XR ---
EXAM: XR Chest, 2 Views CLINICAL HISTORY: ITS.REASON XR Reason: fever TECHNIQUE: Frontal and lateral views of the chest. COMPARISON: 06/22/17 chest x-ray FINDINGS: Lungs: No consolidation or mass. Pleural space: No effusion. Heart: No cardiomegaly. Mediastinum: Unremarkable. Bones/joints: No acute findings. IMPRESSION: No acute cardiopulmonary process.
[2018-08-04 02:18] VITALS: BP 130/79; PULSE 74; RESP 16; TEMP 100.2
== END 2018-08-04 02:18 | disposition home or self-care (01) ==
LOC: EC 00:54
DX: B34.9 Viral infection, unspecified (principal); Z87.891 Personal history of nicotine dependence
CPT/HCPCS: 36415; 80053; 85025; 87502; 71046; 99283; 96374; 96361; J1885

== ENCOUNTER 2019-06-15 17:19 | Emergency (ER) | payer OTHER ==
[2019-06-15 17:24] VITALS: RESP 18; TEMP 98.7
[2019-06-15 18:07] VITALS: BP 138/96; PULSE 83
--- NOTE | 2019-06-15 18:08 | ED ---
Recheck HPI - General Chief Complaint: Recheck/Abnormal Lab/Rx Stated Complaint: High BP Time Seen by Provider: 06/15/19 17:31 Source: patient Mode of arrival: ambulatory Limitations: no limitations - History of Present Illness Initial Comments: Patient is a 33-year-old female presenting to emergency Department with complaints of elevated blood pressure for 4 days. Patient states she checked her blood pressure at work for the past few days it has been elevated at in the 140s to 150s. Patient states she asked the pharmacist at work today what she s hould do and the pharmacist told her to go to the ER for evaluation. Patient denies history of hypertension. She had recent physical with Dr. Parr 3 weeks ago. Patient denies chest pain, shortness breath, headache, dizziness, belly pain, nausea. Patient states she does have a new job which is very stressful for the last 3 months. Patient denies at this time secondary to a tubal ligation and ablation. Patient has no other complaints at this time. Upon arrival to the ER, BP is 146/108, rest of vitals normal. - Related Data Previous Rx's Medication Instructions Recorded Ibuprofen [Motrin] 600 mg PO Q6HR PRN #30 tab 06/15/17 Ondansetron Odt [Zofran Odt] 4 mg PO Q8HR PRN #14 tab 06/15/17 Acetaminophen-Codeine 300-30mg 1 tab PO Q4H PRN #20 tablet 09/24/17 [Tylenol #3] Ciprofloxacin HCl [Cipro] 500 mg PO Q12HR #14 tablet 09/24/17 Ibuprofen [Motrin] 600 mg PO Q8HR PRN #30 tab 09/24/17 Ondansetron Odt [Zofran Odt] 4 mg PO Q8HR PRN #10 tab 09/24/17 Allergies Allergy/AdvReac Type Severity Reaction Status Date / Time No Known Allergies Allergy Verified 06/15/19 17:22 Review of Systems ROS Statement: Those systems with pertinent positive or pertinent negative responses have been documented in the HPI. ROS Other: All systems not noted in ROS Statement are negative. Past Medical History Past Medical History: No Reported History Additional Past Medical History / Comment(s): Hx kidney stones, gest DM- diet controlled.BRONCHITIS History of Any Multi-Drug Resistant Organisms: None Reported Past Surgical History: Tonsillectomy, Tubal Ligation Additional Past Surgical History / Comment(s): at age 7 Past Anesthesia/Blood Transfusion Reactions: No Reported Reaction Past Psychological History: Anxiety, Bipolar, Depression Smoking Status: Former smoker Past Alcohol Use History: Occasional Past Drug Use History: None Reported - Past Family History Mother Family Medical History: Diabetes Mellitus General Exam - General Exam Comments Initial Comments: GENERAL: Well-appearing, well-nourished and in no acute distress. HEAD: Atraumatic, normocephalic. EYES: Pupils equal round and reactive to light, extraocular movements intact, sclera anicteric, conjunctiva are normal. ENT: TMs normal, nares patent, oropharynx clear without exudates. Moist mucous membranes. NECK: Normal range of motion, supple without lymphadenopathy or JVD. LUNGS: Breath sounds clear to auscultation bilaterally and equal. No wheezes rales or rhonchi. HEART: Regular rate and rhythm without murmurs, rubs or gallops. ABDOMEN: Soft, nontender, normoactive bowel sounds. No guarding, no rebound. No masses appreciated. EXTREMITIES: Normal range of motion, no pitting or edema. No clubbing or cyanosis. NEUROLOGICAL: Normal speech, normal gait. PSYCH: Normal mood, normal affect. SKIN: Warm, Dry, normal turgor, no rashes or lesions noted. Limitations: no limitations Course Vital Signs 06/15/19 06/15/19 17:22 18:06 Temperature 98.7 F Pulse Rate 109 H 83 Respiratory 18 18 Rate Blood Pressure 146/108 138/96 O2 Sat by Pulse 98 99 Oximetry Medical Decision Making - Medical Decision Making Patient is a healthy 33-year-old female presenting with elevated blood pressure for 4 days. Patient currently BP is 138/96. Rest of vitals are normal. Patient's exam is unremarkable. She is currently having no symptoms. I discussed this with the patient. Patient will follow up with her PCP next week regarding this elevated blood pressure. I discussed that her elavation could be related to her new stressful job. She is in agreement with this plan of care. Return parameters were discussed with the patient she verbalized understanding. Patient is stable for discharge at this time. Case discussed with Dr. Drew. Disposition Clinical Impression: Elevated BP without diagnosis of hypertension Disposition: HOME SELF-CARE Condition: Stable Instructions (If sedation given, give patient instructions): Normal Exam (ED) Additional Instructions: Please return to the Emergency Department if symptoms worsen or any other concerns. Follow-up with PCP. Is patient prescribed a controlled substance at d/c from ED?: No Referrals: uLther Parr Jr, DO [Primary Care Provider] - 1-2 days
== END 2019-06-15 18:14 | disposition home or self-care (01) ==
LOC: EC 17:19
DX: R03.0 Elevated blood-pressure reading, without diagnosis of hypertension (principal); Z87.891 Personal history of nicotine dependence
CPT/HCPCS: 99283

== ENCOUNTER 2021-04-29 06:08 | Emergency (ER) | payer OTHER ==
[2021-04-29 06:23] VITALS: TEMP 98.7
[2021-04-29] MEDS ORDERED: SODIUM CHLORIDE 0.9% 2,000 ML IV STA (06:26)
[2021-04-29] MEDS ORDERED: ONDANSETRON 4 MG/2 ML VIAL IVP STA (06:30)
[2021-04-29] MEDS ORDERED: HYDROmorphone 0.5 MG/0.5 ML SYRINGE IVP STA (06:30)
[2021-04-29] MEDS ORDERED: KETOROLAC 15 MG/ML 1 ML VIAL IVP STA (06:30)
--- NOTE | 2021-04-29 06:32 | ED ---
Abdominal Pain HPI - General Chief Complaint: Abdominal Pain Stated Complaint: Lower Back Pain, Kidney Stone Time Seen by Provider: 04/29/21 06:26 Source: patient, RN notes reviewed Mode of arrival: ambulatory Limitations: no limitations - History of Present Illness Initial Comments: This a 35-year-old female presents emergency Department chief complaint of left flank pain. Patient states started yesterday afternoon has progressed throughout the night. Patient states she does have history kidney stone and pain seems very similar. She mentioned that she is constipated so she took some milk of magnesia which she's had multiple bowel movements no relief of her symptoms. Patient denies any fevers chills no chest pain or shortness of breath she's had a prior tubal ligation no other abdominal surgeries. Patient states that she says slight nausea no vomiting no dysuria no hematuria noted. - Related Data Home Medications Medication Instructions Recorded Confirmed Bisoprolol-Hctz 5-6.25 mg [Ziac 1 tab PO DAILY 04/29/21 04/29/21 5-6.25 MG] Ergocalciferol [Vitamin D2 (1250 1,250 mcg PO MO 04/29/21 04/29/21 Mcg = 53448 Iu)] FLUoxetine HCL [PROzac] 20 mg PO DAILY 04/29/21 04/29/21 lamoTRIgine [LaMICtal] 100 mg PO DAILY 04/29/21 04/29/21 Allergies Allergy/AdvReac Type Severity Reaction Status Date / Time No Known Allergies Allergy Verified 04/29/21 07:44 Review of Systems ROS Statement: Those systems with pertinent positive or pertinent negative responses have been documented in the HPI. ROS Other: All systems not noted in ROS Statement are negative. Past Medical History Past Medical History: Diabetes Mellitus Additional Past Medical History / Comment(s): Hx kidney stones, gest DM- diet controlled.BRONCHITIS History of Any Multi-Drug Resistant Organisms: None Reported Past Surgical History: Tonsillectomy, Tubal Ligation Additional Past Surgical History / Comment(s): at age 7 Past Anesthesia/Blood Transfusion Reactions: No Reported Reaction Past Psychological History: Anxiety, Bipolar, Depression Smoking Status: Vaper Past Alcohol Use History: Occasional Past Drug Use History: None Reported - Past Family History Mother Family Medical History: Diabetes Mellitus General Exam Limitations: no limitations General appearance: alert, in no apparent distress Head exam: Present: atraumatic, normocephalic, normal inspection Respiratory exam: Present: normal lung sounds bilaterally. Absent: respiratory distress, wheezes, rales, rhonchi, stridor Cardiovascular Exam: Present: regular rate, normal rhythm, normal heart sounds. Absent: systolic murmur, diastolic murmur, rubs, gallop, clicks GI/Abdominal exam: Present: soft, tenderness (Mild left-sided), normal bowel sounds. Absent: distended, guarding, rebound, rigid Back exam: Absent: CVA tenderness (R), CVA tenderness (L) Neurological exam: Present: alert Skin exam: Present: warm, dry, intact, normal color. Absent: rash Course Vital Signs 04/29/21 04/29/21 06:21 08:54 Temperature 98.7 F Pulse Rate 75 60 Respiratory 20 18 Rate Blood Pressure 141/92 125/71 O2 Sat by Pulse 99 99 Oximetry Medical Decision Making - Medical Decision Making 35-year-old presented for left flank pain. Labs urinalysis CT was performed. No definite stone. Patient did present with kidney stone like pain. Patient discharged in stable condition return parameters were discussed. - Lab Data Result diagrams: 04/29/21 06:52 04/29/21 06:52 Lab Results 04/29/21 04/29/21 04/29/21 Range/Units 06:52 06:52 06:52 WBC 6.1 (3.8-10.6) k/uL RBC 4.64 (3.80-5.40) m/uL Hgb 13.8 (11.4-16.0) gm/dL Hct 40.7 (34.0-46.0) % MCV 87.7 (80.0-100.0) fL MCH 29.8 (25.0-35.0) pg MCHC 34.0 (31.0-37.0) g/dL RDW 12.0 (11.5-15.5) % Plt Count 301 (150-450) k/uL MPV 7.4 Neutrophils % 61 % Lymphocytes % 28 % Monocytes % 7 % Eosinophils % 2 % Basophils % 1 % Neutrophils # 3.7 (1.3-7.7) k/uL Lymphocytes # 1.7 (1.0-4.8) k/uL Monocytes # 0.4 (0-1.0) k/uL Eosinophils # 0.1 (0-0.7) k/uL Basophils # 0.0 (0-0.2) k/uL Sodium 141 (137-145) mmol/L Potassium 4.6 (3.5-5.1) mmol/L Chloride 108 H (98-107) mmol/L Carbon Dioxide 23 (22-30) mmol/L Anion Gap 10 mmol/L BUN 13 (7-17) mg/dL Creatinine 0.69 (0.52-1.04) mg/dL Est GFR (CKD-EPI)AfAm >90 (>60 ml/min/1.73 sqM) Est GFR (CKD-EPI)NonAf >90 (>60 ml/min/1.73 sqM) Glucose 110 H (74-99) mg/dL Calcium 9.5 (8.4-10.2) mg/dL Total Bilirubin 0.3 (0.2-1.3) mg/dL AST 22 (14-36) U/L ALT 20 (4-34) U/L Alkaline Phosphatase 68 (38-126) U/L Total Protein 6.4 (6.3-8.2) g/dL Albumin 3.8 (3.5-5.0) g/dL Amylase 71 (30-110) U/L Lipase 175 (23-300) U/L Urine Color Light Yellow Urine Appearance Cloudy H (Clear) Urine pH 5.0 (5.0-8.0) Ur Specific [place] 1.013 (1.001-1.035) Urine Protein Negative (Negative) Urine Glucose (UA) Negative (Negative) Urine Ketones Negative (Negative) Urine Blood Trace H (Negative) Urine Nitrite Negative (Negative) Urine Bilirubin Negative (Negative) Urine Urobilinogen <2.0 (<2.0) mg/dL Ur Leukocyte Esterase Negative (Negative) Urine RBC 2 (0-5) /hpf Urine WBC 3 (0-5) /hpf Ur Squamous Epith Cells 8 H (0-4) /hpf Urine Bacteria Occasional H (None) /hpf Urine Mucus Rare H (None) /hpf Disposition Clinical Impression: Flank pain Disposition: HOME SELF-CARE Condition: Stable Instructions (If sedation given, give patient instructions): Flank Pain (ED) Additional Instructions: Please return to the Emergency Department if symptoms worsen or any other concerns. Is patient prescribed a controlled substance at d/c from ED?: No Referrals: Luther Parr Jr, DO [Primary Care Provider] - 1-2 days Time of Disposition: 09:19
--- NOTE | 2021-04-29 06:44 | XR ---
EXAMINATION TYPE: XR KUB DATE OF EXAM: 04/29/2021 COMPARISON: 09/24/2017 HISTORY: Flank pain TECHNIQUE: 2 views upright FINDINGS: There is no sign of intestinal obstruction or pneumoperitoneum. Fecal pattern is normal. Th ere is no evidence of a mass. There are no calcifications over the kidneys. There are clips from tuba l ligation. Lung bases are clear. IMPRESSION: Nonacute abdomen. No change.
[2021-04-29 07:34] LABS: Basophils % (A) 1 %; Eosinophils # (A) 0.1 k/uL (0-0.7); Eosinophils % (A) 2 %; HCT 40.7 % (34.0-46.0); HGB 13.8 gm/dL (11.4-16.0); Lymphocytes # (A) 1.7 k/uL (1.0-4.8); Lymphocytes % (A) 28 %; MCH 29.8 pg (25.0-35.0); MCV 87.7 fL (80.0-100.0); Mean Platelet Volume 7.4; Monocytes # (A) 0.4 k/uL (0-1.0); Monocytes % (A) 7 %; Neutrophils # (A) 3.7 k/uL (1.3-7.7); Neutrophils % (A) 61 %; Platelet Count 301 k/uL (150-450); RBC 4.64 m/uL (3.80-5.40); WBC 6.1 k/uL (3.8-10.6)
[2021-04-29 07:47] LABS: Appearance,Urine Cloudy (Clear); Bacteria,Urine Occasional /hpf; Bilirubin,Urine Negative (Negative); Blood,Urine Trace (Negative); Color,Urine Light Yellow; Glucose,Urine (UA) Negative (Negative); Ketones,Urine Negative (Negative); Leukocyte Esterase,Urine Negative (Negative); Mucus,Urine Rare /hpf; Nitrite,Urine Negative (Negative); Protein,Urine Negative (Negative); RBC,Urine 2 /hpf (0-5); Specific Gravity,Urine 1.013 (1.001-1.035); Squamous Epithelial Cell,Urine 8 /hpf (0-4); Urobilinogen,Urine <2.0 mg/dL (<2.0); WBC,Urine 3 /hpf (0-5)
[2021-04-29 07:53] LABS: ALT 20 U/L (4-34); AST 22 U/L (14-36); African American GFR (CKD) >90 (>60 ml/min/1.73 sqM); Albumin 3.8 g/dL (3.5-5.0); Alkaline Phosphatase 68 U/L (38-126); Amylase 71 U/L (30-110); Anion Gap 10 mmol/L; Blood Urea Nitrogen 13 mg/dL (7-17); Calcium 9.5 mg/dL (8.4-10.2); Carbon Dioxide 23 mmol/L (22-30); Chloride 108 mmol/L (98-107); Glucose 110 mg/dL (74-99); Lipase 175 U/L (23-300); Non-African American GFR(CKD) >90 (>60 ml/min/1.73 sqM); Potassium 4.6 mmol/L (3.5-5.1); Sodium 141 mmol/L (137-145); Total Bilirubin 0.3 mg/dL (0.2-1.3); Total Protein 6.4 g/dL (6.3-8.2)
[2021-04-29 08:55] VITALS: BP 125/71; PULSE 60; RESP 18
--- NOTE | 2021-04-29 09:06 | CT ---
EXAMINATION TYPE: CT abdomen pelvis w con DATE OF EXAM: 04/29/2021 COMPARISON: 09/27/2017 HISTORY: Abdominal and low back cerna with history of stones CT DLP: 1732.5 mGycm Automated exposure control for dose reduction was used. CONTRAST: CT scan of the abdomen pelvis is performed with IV Contrast, patient injected with 100 ml mL of Isovu e 300. FINDINGS- LUNG BASES- No significant abnormality is appreciated. LIVER/GB- No gross abnormality is appreciated. PANCREAS- No gross abnormality is seen. SPLEEN- No gross abnormality is seen. ADRENALS- No gross abnormality is seen. KIDNEYS/BLADDER-no hydronephrosis or nephrolithiasis. Hypodensities within bilateral kidneys too smal l to characterize but likely the basis of simple cysts.. BOWEL-bowel gas pattern nonspecific with no obstruction. Changes of diverticulosis of the sigmoid col on incidentally noted.. Normal appendix. LYMPH NODES- No greater than 1cm abdominal or pelvic lymph nodes areappreciated. OSSEOUS STRUCTURES- No significant abnormality is seen. OTHER- aorta of normal caliber. Postsurgical changes involving the pelvis noted. Congenital IVC anom bernice noted. IMPRESSION- 1. No acute process.
[2021-04-29] MEDS ORDERED: ACET/COD 300 MG/30 MG STARTER PACK 6 TAB BTL PO STA (09:19)
== END 2021-04-29 09:26 | disposition home or self-care (01) ==
LOC: EC 06:08
DX: R10.9 Unspecified abdominal pain (principal); E11.9 Type 2 diabetes mellitus without complications; F41.9 Anxiety disorder, unspecified; F31.9 Bipolar disorder, unspecified; F17.290 Nicotine dependence, other tobacco product, uncomplicated; Z87.442 Personal history of urinary calculi; Z98.51 Tubal ligation status; Z90.89 Acquired absence of other organs
CPT/HCPCS: 99284; 96374; 96375 ×2; 36415; 80053; 82150; 83690; 85025; 81001; 74018; 74177; J2405; J1885; J1170; Q9967

== ENCOUNTER 2023-07-05 13:46 | Emergency (ER) | payer OTHER ==
[2023-07-05 14:10] VITALS: RESP 18
--- NOTE | 2023-07-05 14:41 | ED ---
Weakness HPI - General Chief complaint: Weakness Stated complaint: Weakness, NV Time Seen by Provider: 07/05/23 13:51 Source: patient, RN notes reviewed Mode of arrival: ambulatory Limitations: no limitations - History of Present Illness Initial comments: 38-year-old female presents emergency Department with chief complaint of cough congestion bodyaches headache chest tightness. Patient's symptoms started over the last couple days. Patient is concerned she may have: Good. Patient denies any other associated symptoms. Denies any known drug ALLERGIES she does report fever. - Related Data Home Medications Medication Instructions Recorded Confirmed lamoTRIgine [LaMICtal] 100 mg PO HS 04/29/21 07/05/23 Sertraline [Zoloft] 100 mg PO HS 07/05/23 07/05/23 hydrOXYzine pamoate [Vistaril] 25 mg PO BID PRN 07/05/23 07/05/23 Allergies Allergy/AdvReac Type Severity Reaction Status Date / Time No Known Allergies Allergy Verified 07/05/23 14:48 Review of Systems ROS Statement: Those systems with pertinent positive or pertinent negative responses have been documented in the HPI. ROS Other: All systems not noted in ROS Statement are negative. Past Medical History Past Medical History: Diabetes Mellitus, Hypertension Additional Past Medical History / Comment(s): Hx kidney stones, gest DM- diet controlled.BRONCHITIS History of Any Multi-Drug Resistant Organisms: None Reported Past Surgical History: Tonsillectomy, Tubal Ligation Additional Past Surgical History / Comment(s): at age 7 Past Anesthesia/Blood Transfusion Reactions: No Reported Reaction Past Psychological History: Anxiety, Bipolar, Depression Smoking Status: Vaper Past Alcohol Use History: Occasional Past Drug Use History: None Reported - Past Family History Mother Family Medical History: Diabetes Mellitus General Exam Limitations: no limitations General appearance: alert, in no apparent distress Head exam: Present: atraumatic, normocephalic, normal inspection Eye exam: Present: normal appearance, PERRL, EOMI. Absent: scleral icterus, conjunctival injection, periorbital swelling ENT exam: Present: normal exam, normal oropharynx, mucous membranes moist Neck exam: Present: normal inspection, full ROM. Absent: tenderness, meningismus, lymphadenopathy Respiratory exam: Present: normal lung sounds bilaterally. Absent: respiratory distress, wheezes, rales, rhonchi, stridor Cardiovascular Exam: Present: regular rate, normal rhythm, normal heart sounds. Absent: systolic murmur, diastolic murmur, rubs, gallop, clicks Course Vital Signs 07/05/23 07/05/23 07/05/23 13:47 14:55 14:58 Temperature 98.5 F 97.9 F Pulse Rate 113 H 96 Respiratory 18 18 18 Rate Blood Pressure 176/106 145/82 O2 Sat by Pulse 96 97 Oximetry Medical Decision Making - Medical Decision Making Was pt. sent in by a medical professional or institution (SAMANTHA Pryor, LENDING CONSULTANT, urgent care, hospital, or detention...) When possible be specific @ -No Did you speak to anyone other than the patient for history (EMS, parent, family, police, friend...)? What history was obtained from this source @ -No Did you review nursing and triage notes (agree or disagree)? Why? @ -I reviewed and agree with nursing and triage notes Were old charts reviewed (outside hosp., previous admission, EMS record, old EKG, old radiological studies, urgent care reports/EKG's, detention records)? Report findings @ -No old charts were reviewed Differential Diagnosis (chest pain, altered mental status, abdominal pain women, abdominal pain men, vaginal bleeding, weakness, fever, dyspnea, syncope, headache, dizziness, GI bleed, back pain, seizure, CVA, palpatations, mental health, musculoskeletal)? @ -COVID 19, RSV, influenza, pneumonia, acute bronchitis, URI, this list is not all inclusivee EKG interpreted by me (3pts min.). @ -None X-rays interpreted by me (1pt min.). @ -None done CT interpreted by me (1pt min.). @ -None done U/S interpreted by me (1pt. min.). @ -None done What testing was considered but not performed or refused? (CT, X-rays, U/S, labs)? Why? @ -None What meds were considered but not given or refused? Why? @ -None Did you discuss the management of the patient with other professionals (professionals i.e. SAMANTHA Pryor, LENDING CONSULTANT, lab, RT, psych nurse, healthcare social worker, medical support assistant, teacher, parcel post officer, gearcase assembler)? Give summary @ -No Was smoking cessation discussed for >3mins.? @ -No Was critical care preformed (if so, how long)? @ -No Were there social determinants of health that impacted care today? How? (Homelessness, low income, unemployed, alcoholism, drug addiction, transportation, low edu. Level, literacy, decrease access to med. care, assisted, rehab)? @ -No Was there de-escalation of care discussed even if they declined (Discuss DNR or withdrawal of care, Hospice)? DNR status @ -No What co-morbidities impacted this encounter? (DM, HTN, Smoking, COPD, CAD, Cancer, CVA, ARF, Chemo, Hep., AIDS, mental health diagnosis, sleep apnea, morbid obesity)? @ -None Was patient admitted / discharged? Hospital course, mention meds given and route, prescriptions, significant lab abnormalities, going to OR and other pertinent info. @ -Discharge patient is COVID-19 positive. Patient's vital are stable in no signs of distress, patient discharged in stable condition Undiagnosed new problem with uncertain prognosis? @ -No Drug Therapy requiring intensive monitoring for toxicity (Heparin, Nitro, Insulin, Cardizem)? @ -No Were any procedures done? @ -No Diagnosis @ covid19 Acute, or Chronic, or Acute on Chronic? @ -[acute Uncomplicated (without systemic symptoms) or Complicated (systemic symptoms)? @ -[uncomplicated Side effects of treatment? @ -No Exacerbation, Progression, or Severe Exacerbation? @ -No Poses a threat to life or bodily function? How? (Chest pain, [place], [place], pneumonia, PE, COPD, DKA, ARF, appy, cholecystitis, CVA, Diverticulitis, Homicidal, Suicidal, threat to staff... and all critical care pts) @ -No - Lab Data Lab Results 07/05/23 Range/Units 13:58 Influenza Type A (PCR) Not Detected (Not Detectd) Influenza Type B (PCR) Not Detected (Not Detectd) RSV (PCR) Not Detected (Not Detectd) SARS-CoV-2 (PCR) Detected A (Not Detectd) Disposition Clinical Impression: COVID-19 Disposition: HOME SELF-CARE Condition: Stable Instructions (If sedation given, give patient instructions): COVID-19 (Coronavirus Disease 2019) (ED) Additional Instructions: Please return to the Emergency Department if symptoms worsen or any other concerns. Is patient prescribed a controlled substance at d/c from ED?: No Referrals: Luther Parr Jr, DO [Primary Care Provider] - 1-2 days Time of Disposition: 14:41
[2023-07-05 15:00] VITALS: BP 145/82; PULSE 96; TEMP 97.9
== END 2023-07-05 14:58 | disposition home or self-care (01) ==
LOC: EC 13:46
DX: U07.1 COVID-19 (principal); E11.9 Type 2 diabetes mellitus without complications; I10 Essential (primary) hypertension; F41.9 Anxiety disorder, unspecified; F31.9 Bipolar disorder, unspecified; F17.290 Nicotine dependence, other tobacco product, uncomplicated; Z79.899 Other long term (current) drug therapy
CPT/HCPCS: 87636; 99284

== ENCOUNTER 2023-09-07 15:08 | Emergency (ER) | payer OTHER ==
[2023-09-07 15:45] VITALS: PULSE 86; RESP 20; TEMP 98.2
--- NOTE | 2023-09-07 16:04 | ED ---
General Adult HPI - General Chief complaint: Recheck/Abnormal Lab/Rx Stated complaint: High bp Time Seen by Provider: 09/07/23 15:40 Source: patient, RN notes reviewed, old records reviewed Mode of arrival: ambulatory Limitations: no limitations - History of Present Illness Initial comments: This is a 38-year-old female who presents to the emergency department stating she has a past medical history significant for high blood pressure. Patient states she stopped taking her meds about 4 months ago because she thought her blood pressure was normal. Patient went to the dentist today and they noted her blood pressure to be very high so they sent to the emergency department. Patient denies any symptoms. Patient denies a headache patient has blurred vision. Patient has any numbness or weakness. Patient Nuys chest pain palpitations difficulty breathing or shortness of breath. Patient denies any thyroid problems in the past. Patient denies any back pain. Patient Nuys any other symptoms. - Related Data Home Medications Medication Instructions Recorded Confirmed lamoTRIgine [LaMICtal] 100 mg PO HS 04/29/21 07/05/23 Sertraline [Zoloft] 100 mg PO HS 07/05/23 07/05/23 hydrOXYzine pamoate [Vistaril] 25 mg PO BID PRN 07/05/23 07/05/23 Previous Rx's Medication Instructions Recorded hydroCHLOROthiazide [Hydrodiuril] 25 mg PO DAILY #10 tab 09/07/23 Allergies Allergy/AdvReac Type Severity Reaction Status Date / Time No Known Allergies Allergy Verified 07/05/23 14:48 Review of Systems ROS Statement: Those systems with pertinent positive or pertinent negative responses have been documented in the HPI. ROS Other: All systems not noted in ROS Statement are negative. Past Medical History Past Medical History: Diabetes Mellitus, Hypertension Additional Past Medical History / Comment(s): Hx kidney stones, gest DM- diet controlled.BRONCHITIS History of Any Multi-Drug Resistant Organisms: None Reported Past Surgical History: Tonsillectomy, Tubal Ligation Additional Past Surgical History / Comment(s): at age 7 Past Anesthesia/Blood Transfusion Reactions: No Reported Reaction Past Psychological History: Anxiety, Bipolar, Depression Smoking Status: Vaper Past Alcohol Use History: Occasional Past Drug Use History: None Reported - Past Family History Mother Family Medical History: Diabetes Mellitus General Exam - General Exam Comments Initial Comments: GENERAL: Patient is well-developed and well-nourished. Patient is nontoxic and well- hydrated and is in no acute distress. ENT: Neck is soft and supple. No significant lymphadenopathy is noted. Oropharynx is clear. Moist mucous membranes. Neck has full range of motion without eliciting any pain. EYES: The sclera were anicteric and conjunctiva were pink and moist. Extraocular movements were intact and pupils were equal round and reactive to light. Eyelids were unremarkable. PULMONARY: Unlabored respirations. Good breath sounds bilaterally. No audible rales rhonchi or wheezing was noted. CARDIOVASCULAR: There is a regular rate and rhythm without any murmurs gallops or rubs. ABDOMEN: Soft and nontender with normal bowel sounds. SKIN: Skin is clear with no lesions or rashes and otherwise unremarkable. NEUROLOGIC: Patient is alert and oriented x3. Cranial nerves II through XII are grossly intact. Motor and sensory are also intact. Normal speech, volume and content. Symmetrical smile. MUSCULOSKELETAL: Normal extremities with adequate strength and full range of motion. No lower extremity swelling or edema. No calf tenderness. LYMPHATICS: No significant lymphadenopathy is noted PSYCHIATRIC: Normal psychiatric evaluation. Limitations: no limitations Course Vital Signs 09/07/23 09/07/23 09/07/23 15:36 16:00 16:05 Temperature 98.2 F Pulse Rate 86 Respiratory 20 Rate Blood Pressure 216/130 201/116 201/116 O2 Sat by Pulse 98 Oximetry 09/07/23 09/07/23 16:07 16:43 Temperature Pulse Rate Respiratory Rate Blood Pressure 209/119 168/86 O2 Sat by Pulse Oximetry Medical Decision Making - Medical Decision Making EKG is interpreted by myself but EKG shows a sinus rhythm at 86 bpm FL of 163 QRS is 85 QT interval 366 QTc is 493 patient's EKG shows no ST segment ovation or depression. Was pt. sent in by a medical professional or institution (, PA, MANAGING PARTNER, urgent care, hospital, or prison...) When possible be specific @ -Patient's dentist sent her to the emergency department Did you speak to anyone other than the patient for history (EMS, parent, family, police, friend...)? What history was obtained from this source @ -No Did you review nursing and triage notes (agree or disagree)? Why? @ -I reviewed and agree with nursing and triage notes Were old charts reviewed (outside hosp., previous admission, EMS record, old EKG, old radiological studies, urgent care reports/EKG's, prison records)? Report findings @ -No old charts were reviewed Differential Diagnosis (chest pain, altered mental status, abdominal pain women, abdominal pain men, vaginal bleeding, weakness, fever, dyspnea, syncope, headache, dizziness, GI bleed, back pain, seizure, CVA, palpatations, mental health, musculoskeletal)? @ -Not applicable EKG interpreted by me (3pts min.). @ -As above X-rays interpreted by me (1pt min.). @ -Chest x-ray shows no acute normality CT interpreted by me (1pt min.). @ -None done U/S interpreted by me (1pt. min.). @ -None done What testing was considered but not performed or refused? (CT, X-rays, U/S, labs)? Why? @ -None What meds were considered but not given or refused? Why? @ -None Did you discuss the management of the patient with other professionals (professionals i.e. , PA, MANAGING PARTNER, lab, RT, psych nurse, social research assistant, journey lineman, teacher, chief executive officer, gearcase assembler)? Give summary @ -No Was smoking cessation discussed for >3mins.? @ -No Was critical care preformed (if so, how long)? @ -No Were there social determinants of health that impacted care today? How? (Homelessness, low income, unemployed, alcoholism, drug addiction, transportation, low edu. Level, literacy, decrease access to med. care, residential, rehab)? @ -No Was there de-escalation of care discussed even if they declined (Discuss DNR or withdrawal of care, Hospice)? DNR status @ -No What co-morbidities impacted this encounter? (DM, HTN, Smoking, COPD, CAD, Cancer, CVA, ARF, Chemo, Hep., AIDS, mental health diagnosis, sleep apnea, morbid obesity)? @ -None Was patient admitted / discharged? Hospital course, mention meds given and route, prescriptions, significant lab abnormalities, going to OR and other pertinent info. @ -Patient was given hydralazine 20 mg and brought her blood pressure down nicely. Patient remained asymptomatic throughout her stay though at the end she stated she was getting a little anxious so I did give her 0.5 Ativan and she did relax. Patient was also given 25 of hydrochlorothiazide before she left. Patient will be given a prescription of similar. Undiagnosed new problem with uncertain prognosis? @ -No Drug Therapy requiring intensive monitoring for toxicity (Heparin, Nitro, Insulin, Cardizem)? @ -No Were any procedures done? @ -No Diagnosis/symptom? @ -Hypertensive urgency Acute, or Chronic, or Acute on Chronic? @ -Acute Uncomplicated (without systemic symptoms) or Complicated (systemic symptoms)? @ -Complicated Side effects of treatment? @ -No Exacerbation, Progression, or Severe Exacerbation? @ -No Poses a threat to life or bodily function? How? (Chest pain, [place], [place], pneumonia, PE, COPD, DKA, ARF, appy, cholecystitis, CVA, Diverticulitis, Homicidal, Suicidal, threat to staff... and all critical care pts) @ -No - Lab Data Result diagrams: 09/07/23 16:28 09/07/23 16:28 Lab Results 09/07/23 09/07/23 09/07/23 Range/Units 16:28 16:28 16:28 WBC 8.9 (3.8-10.6) k/uL RBC 4.91 (3.80-5.40) m/uL Hgb 14.4 (11.4-16.0) gm/dL Hct 43.3 (34.0-46.0) % MCV 88.1 (80.0-100.0) fL MCH 29.3 (25.0-35.0) pg MCHC 33.2 (31.0-37.0) g/dL RDW 12.5 (11.5-15.5) % Plt Count 317 (150-450) k/uL MPV 7.6 Neutrophils % 70 % Lymphocytes % 21 % Monocytes % 6 % Eosinophils % 1 % Basophils % 1 % Neutrophils # 6.2 (1.3-7.7) k/uL Lymphocytes # 1.9 (1.0-4.8) k/uL Monocytes # 0.5 (0-1.0) k/uL Eosinophils # 0.1 (0-0.7) k/uL Basophils # 0.1 (0-0.2) k/uL PT 10.2 (10.0-12.5) sec INR 0.9 (<1.2) APTT 24.4 (22.0-30.0) sec Sodium 138 (137-145) mmol/L Chloride 107 (98-107) mmol/L Carbon Dioxide 24 (22-30) mmol/L Anion Gap 7 mmol/L BUN 12 (7-17) mg/dL Creatinine 0.62 (0.52-1.04) mg/dL Est GFR (CKD-EPI)AfAm >90 (>60 ml/min/1.73 sqM) Est GFR (CKD-EPI)NonAf >90 (>60 ml/min/1.73 sqM) Glucose 124 H (74-99) mg/dL Calcium 9.0 (8.4-10.2) mg/dL Total Bilirubin 0.7 (0.2-1.3) mg/dL ALT 21 (4-34) U/L Total Protein 6.5 (6.3-8.2) g/dL Albumin 4.0 (3.5-5.0) g/dL TSH 0.758 (0.465-4.680) mIU/L Disposition Clinical Impression: Hypertensive urgency Disposition: HOME SELF-CARE Condition: Good Prescriptions: hydroCHLOROthiazide [Hydrodiuril] 25 mg PO DAILY #10 tab Is patient prescribed a controlled substance at d/c from ED?: No Referrals: Luther Parr Jr, DO [Primary Care Provider] - 1-2 days Time of Disposition: 17:42
[2023-09-07] MEDS: hydrALAZINE HCL 20 MG/ML 1 ML VIAL IVP STA (16:29)
[2023-09-07 16:53] VITALS: BP 168/86
[2023-09-07 16:56] LABS: Basophils # (A) 0.1 k/uL (0-0.2); Basophils % (A) 1 %; Eosinophils # (A) 0.1 k/uL (0-0.7); Eosinophils % (A) 1 %; HCT 43.3 % (34.0-46.0); HGB 14.4 gm/dL (11.4-16.0); Lymphocytes # (A) 1.9 k/uL (1.0-4.8); Lymphocytes % (A) 21 %; MCH 29.3 pg (25.0-35.0); MCHC 33.2 g/dL (31.0-37.0); MCV 88.1 fL (80.0-100.0); Mean Platelet Volume 7.6; Monocytes # (A) 0.5 k/uL (0-1.0); Monocytes % (A) 6 %; Neutrophils # (A) 6.2 k/uL (1.3-7.7); Neutrophils % (A) 70 %; Platelet Count 317 k/uL (150-450); RBC 4.91 m/uL (3.80-5.40); RDW 12.5 % (11.5-15.5); WBC 8.9 k/uL (3.8-10.6)
[2023-09-07 17:05] LABS: ALT 21 U/L (4-34); African American GFR (CKD) >90 (>60 ml/min/1.73 sqM); Anion Gap 7 mmol/L; Blood Urea Nitrogen 12 mg/dL (7-17); Carbon Dioxide 24 mmol/L (22-30); Chloride 107 mmol/L (98-107); Glucose 124 mg/dL (74-99); Non-African American GFR(CKD) >90 (>60 ml/min/1.73 sqM); Sodium 138 mmol/L (137-145); Total Bilirubin 0.7 mg/dL (0.2-1.3); Total Protein 6.5 g/dL (6.3-8.2)
[2023-09-07 17:06] LABS: AST 31 U/L (14-36); Alkaline Phosphatase 62 U/L (38-126); Magnesium 1.8 mg/dL (1.6-2.3); Potassium 4.2 mmol/L (3.5-5.1)
[2023-09-07 17:10] LABS: INR 0.9 (<1.2); Partial Thromboplastin Time 24.4 sec (22.0-30.0); Prothrombin Time 10.2 sec (10.0-12.5)
--- NOTE | 2023-09-07 17:11 | XR ---
EXAMINATION: XR chest 2V: 09/07/2023 4:51 PM CLINICAL INDICATION: Chest Pain TECHNIQUE: Departmental protocol COMPARISON: 08/04/2018 FINDINGS: The overlying soft tissues are prominent. Lungs appear to be negative as seen. The pleural spaces are negative. The cardiac silhouette is not enlarged. The remainder of the mediastinal silhouette is unremarkable. The skeletal structures and soft tissues are negative for acute findings. IMPRESSION: No acute radiographic process.
[2023-09-07] MEDS: LORazepam 2 MG/ML INJ IV STA (17:12)
[2023-09-07] MEDS: hydroCHLOROthiazide 25 MG TAB PO SCH (18:29)
[2023-09-07 19:31] LABS: Amphetamine Screen,Urine Not Detected (NotDetected); Barbiturate Screen,Urine Not Detected (NotDetected); Benzodiazepines Screen,Urine Not Detected (NotDetected); Cocaine Screen,Urine Not Detected (NotDetected); Methadone Screen, Urine Not Detected (NotDetected); Opiate Screen,Urine Not Detected (NotDetected); Oxycodone Screen, Urine Not Detected (NotDetected); Phencyclidine Screen,Urine Not Detected (NotDetected); Tricyclic Antidepressant,Urine Not Detected (NotDetected); Urn Cannabinoid Scrn Not Detected (NotDetected)
[2023-09-08] MEDS ORDERED: hydroCHLOROthiazide 25 MG TAB PO SCH (09:00)
== END 2023-09-07 18:50 | disposition home or self-care (01) ==
LOC: EC 15:08
DX: I16.0 Hypertensive urgency (principal); I10 Essential (primary) hypertension; F17.290 Nicotine dependence, other tobacco product, uncomplicated; Z79.899 Other long term (current) drug therapy
CPT/HCPCS: 36415; 93005; 80053; 84443; 83735; 84484; 85025; 85610; 85730; 80306; 71046; 99284; 96374; 96375; J2060; J0360

== ENCOUNTER → 2024-02-01 | Outpatient (CLI) | payer OTHER ==
--- NOTE | 2024-03-06 13:50 | XR ---
EXAMINATION TYPE: XR lumbar spine 2 or 3V DATE OF EXAM: 02/01/2024 CLINICAL HISTORY: Back pain and right-sided sciatica TECHNIQUE: Three views of the lumbar spine are submitted. COMPARISON: CT abdomen pelvis 04/29/2021 FINDINGS: There are 5 lumbar type vertebral bodies identified. The lumbar spine shows satisfactory alignment w ithout evidence of acute fracture or dislocation. Vertebral body heights are within normal limits. Disc spaces are within normal limits. The overlying soft tissue appears unremarkable. Tubal ligation clip identified within the left pelvis. IMPRESSION: 1. No acute fracture or dislocation is seen in the lumbar spine. 2. No radiographic evidence of significant degenerative disc disease. [facility], , 03/06/2024 1:47 PM
== END | disposition home or self-care (01) ==
LOC: RADXRMAIN 09:35
PROVIDERS: ATTEND Family Medicine
DX: M54.41 Lumbago with sciatica, right side (principal)
CPT/HCPCS: 72100

== ENCOUNTER 2024-07-13 09:53 | Emergency (ER) | payer OTHER ==
--- NOTE | 2024-07-13 10:21 | ED ---
General Adult HPI - General Chief complaint: Upper Respiratory Infection Stated complaint: cough Time Seen by Provider: 07/13/24 10:19 Source: patient, RN notes reviewed, old records reviewed Mode of arrival: wheelchair Limitations: no limitations - History of Present Illness Initial comments: 39-year-old female presented to ER for evaluation of cough, congestion and myalgias. She states on , 07-11-2024 she started to experience the symptoms along with sinus pressure and chest congestion. When describing chest congestion patient points to epigastric region. She denies any radiation of this. No known cardiac history. Patient does believe she has fevers but has not taken her temperature. She has tried taking [id number] ibuprofen, Tylenol, DayQuil with minimal relief. She denies any shortness of breath, dizziness, lightheadedness, nausea, vomiting, abdominal pain, constipation/diarrhea or peripheral edema. 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 - Related Data Home Medications Medication Instructions Recorded Confirmed lamoTRIgine [LaMICtal] 100 mg PO HS 04/29/21 09/07/23 Sertraline [Zoloft] 100 mg PO HS 07/05/23 09/07/23 hydrOXYzine pamoate [Vistaril] 25 mg PO BID PRN 07/05/23 09/07/23 Previous Rx's Medication Instructions Recorded hydroCHLOROthiazide [Hydrodiuril] 25 mg PO DAILY #10 tab 09/07/23 methylPREDNISolone [Medrol Dose 0 mg PO DIRECTED #1 packet 07/13/24 Pack] Allergies Allergy/AdvReac Type Severity Reaction Status Date / Time No Known Allergies Allergy Verified 07/13/24 09:57 Review of Systems ROS Statement: Those systems with pertinent positive or pertinent negative responses have been documented in the HPI. ROS Other: All systems not noted in ROS Statement are negative. Past Medical History Past Medical History: Diabetes Mellitus, Hypertension Additional Past Medical History / Comment(s): Hx kidney stones, gest DM- diet controlled.BRONCHITIS History of Any Multi-Drug Resistant Organisms: None Reported Past Surgical History: Tonsillectomy, Tubal Ligation Additional Past Surgical History / Comment(s): at age 7 Past Anesthesia/Blood Transfusion Reactions: No Reported Reaction Past Psychological History: Anxiety, Bipolar, Depression Smoking Status: Vaper Past Alcohol Use History: Occasional Past Drug Use History: None Reported - Past Family History Mother Family Medical History: Diabetes Mellitus General Exam Limitations: no limitations General appearance: alert, in no apparent distress ENT exam: Present: normal exam, mucous membranes moist (erythematous pharynx), TM's normal bilaterally, normal external ear exam Neck exam: Present: normal inspection. Absent: tenderness, meningismus, lymphadenopathy Respiratory exam: Present: normal lung sounds bilaterally. Absent: respiratory distress, wheezes, rales, rhonchi, stridor Cardiovascular Exam: Present: normal rhythm, tachycardia, normal heart sounds GI/Abdominal exam: Present: soft, normal bowel sounds. Absent: distended, tenderness, guarding, rebound, rigid Neurological exam: Present: alert, oriented X3, CN II-XII intact Skin exam: Present: warm, dry, intact, normal color. Absent: rash Course Vital Signs 07/13/24 07/13/24 07/13/24 09:57 10:41 10:45 Temperature 101.5 F H Pulse Rate 105 H Pulse Rate [ 106 H Apical] Respiratory 24 22 Rate Blood Pressure 134/94 O2 Sat by Pulse 97 Oximetry 07/13/24 11:40 Temperature 99.8 F H Pulse Rate 100 Pulse Rate [ Apical] Respiratory 20 Rate Blood Pressure 129/87 O2 Sat by Pulse 97 Oximetry EKG Findings - EKG Comments: EKG Findings:: EKG taken at 10: 34 showing a sinus rhythm. Inverted T waves in lead III and aVF. No ST segment elevations or depressions. Ventricular rate 96, ID interval 151, QRS duration 77, QT/QTc 306/360. Medical Decision Making - Medical Decision Making Was pt. sent in by a medical professional or institution (, PA, [employer], urgent care, hospital, or jail...) When possible be specific @ -No Did you speak to anyone other than the patient for history (EMS, parent, family, police, friend...)? What history was obtained from this source @ -No Did you review nursing and triage notes (agree or disagree)? Why? @ -I reviewed and agree with nursing and triage notes Were old charts reviewed (outside hosp., previous admission, EMS record, old EKG, old radiological studies, urgent care reports/EKG's, jail records)? Report findings @ -No old charts were reviewed Differential Diagnosis (chest pain, altered mental status, abdominal pain women, abdominal pain men, vaginal bleeding, weakness, fever, dyspnea, syncope, headache, dizziness, GI bleed, back pain, seizure, CVA, palpatations, mental health, musculoskeletal)? @ -COVID, RSV, influenza, viral sinusitis, pneumonia, strep pharyngitis, ... this list is not meant to be all-inclusive EKG interpreted by me (3pts min.). @ -As above X-rays interpreted by me (1pt min.). @ -CXR interpreted me negative for focal consolidations. CT interpreted by me (1pt min.). @ -None done U/S interpreted by me (1pt. min.). @ -None done What testing was considered but not performed or refused? (CT, X-rays, U/S, labs)? Why? @ -None What meds were considered but not given or refused? Why? @ -None Did you discuss the management of the patient with other professionals (professionals i.e. , PA, [employer], lab, RT, psych nurse, social science analyst, compressor repairer, teacher, jailer/training officer, case management specialist)? Give summary @ -No Was smoking cessation discussed for >3mins.? @ -No Was critical care preformed (if so, how long)? @ -No Were there social determinants of health that impacted care today? How? (Homel essness, low income, unemployed, alcoholism, drug addiction, transportation, low edu. Level, literacy, decrease access to med. care, senior care, rehab)? @ -No Was there de-escalation of care discussed even if they declined (Discuss DNR or withdrawal of care, Hospice)? DNR status @ -No What co-morbidities impacted this encounter? (DM, HTN, Smoking, COPD, CAD, Cancer, CVA, ARF, Chemo, Hep., AIDS, mental health diagnosis, sleep apnea, morbid obesity)? @ -None Was patient admitted / discharged? Hospital course, mention meds given and route, prescriptions, significant lab abnormalities, going to OR and other pertinent info. @ -Discharge. 39-year-old female presented the ER for evaluation of cough and congestion. Upon examination, patient febrile at 101.5F with associated tachycardia. Vitals otherwise stable. Lab studies obtained showing a WBC of 9.9 with a left shift 8.3. CMP unremarkable. Troponin undetectable. D-dimer negative at 0.3. Chest x-ray negative. Viral swabs negative. Symptoms believed to be viral in nature. Patient given symptomatic control in the ER with IV fluids, Toradol and Tylenol with improvement of fever. Upon reevaluation, patient resting comfortably in exam room no signs of acute distress. Patient is stable for discharge. Medrol Dosepak prescribed. Strict return parameters discussed. Patient discharged in stable condition with follow-up to PCP. Patient verbally expressed understanding and agreement with care plan. Case discussed with ED attending, Dr. Jessica. Undiagnosed new problem with uncertain prognosis? @ -No Drug Therapy requiring intensive monitoring for toxicity (Heparin, Nitro, Insulin, Cardizem)? @ -No Were any procedures done? @ -No Diagnosis/symptom? @ -Bronchitis Acute, or Chronic, or Acute on Chronic? @ -Acute Uncomplicated (without systemic symptoms) or Complicated (systemic symptoms)? @ -Uncomplicated Side effects of treatment? @ -No Exacerbation, Progression, or Severe Exacerbation? @ -No Poses a threat to life or bodily function? How? (Chest pain, [place], [place], pneumonia, PE, COPD, DKA, ARF, appy, cholecystitis, CVA, Diverticulitis, Homicidal, Suicidal, threat to staff... and all critical care pts) @ -No - Lab Data Result diagrams: 07/13/24 10:28 07/13/24 10:28 Lab Results 07/13/24 07/13/24 07/13/24 Range/Units 10:03 10:28 10:28 WBC 9.9 (3.8-10.6) k/uL RBC 5.17 (3.80-5.40) m/uL Hgb 14.9 (11.4-16.0) gm/dL Hct 44.1 (34.0-46.0) % MCV 85.3 (80.0-100.0) fL MCH 28.9 (25.0-35.0) pg MCHC 33.8 (31.0-37.0) g/dL RDW 13.1 (11.5-15.5) % Plt Count 289 (150-450) k/uL MPV 7.3 Neutrophils % 84 % Lymphocytes % 10 % Monocytes % 3 % Eosinophils % 2 % Basophils % 0 % Neutrophils # 8.3 H (1.3-7.7) k/uL Lymphocytes # 1.0 (1.0-4.8) k/uL Monocytes # 0.3 (0-1.0) k/uL Eosinophils # 0.2 (0-0.7) k/uL Basophils # 0.0 (0-0.2) k/uL PT 10.7 (10.0-12.5) sec INR 1.0 (<1.2) APTT 19.3 L (22.0-30.0) sec D-Dimer (<0.60) mg/L FEU Sodium (137-145) mmol/L Potassium (3.5-5.1) mmol/L Chloride (98-107) mmol/L Carbon Dioxide (22-30) mmol/L Anion Gap mmol/L BUN (7-17) mg/dL Creatinine (0.52-1.04) mg/dL Est GFR (CKD-EPI)AfAm (>60 ml/min/1.73 sqM) Est GFR (CKD-EPI)NonAf (>60 ml/min/1.73 sqM) Glucose (74-99) mg/dL Calcium (8.4-10.2) mg/dL Magnesium (1.6-2.3) mg/dL Total Bilirubin (0.2-1.3) mg/dL AST (14-36) U/L ALT (4-34) U/L Alkaline Phosphatase (38-126) U/L Troponin I (0.000-0.034) ng/mL Total Protein (6.3-8.2) g/dL Albumin (3.5-5.0) g/dL Influenza Type A (PCR) Not Detected (Not Detectd) Influenza Type B (PCR) Not Detected (Not Detectd) RSV (PCR) Not Detected (Not Detectd) SARS-CoV-2 (PCR) Not Detected (Not Detectd) 07/13/24 07/13/24 07/13/24 Range/Units 10:28 10:28 10:28 WBC (3.8-10.6) k/uL RBC (3.80-5.40) m/uL Hgb (11.4-16.0) gm/dL Hct (34.0-46.0) % MCV (80.0-100.0) fL MCH (25.0-35.0) pg MCHC (31.0-37.0) g/dL RDW (11.5-15.5) % Plt Count (150-450) k/uL MPV Neutrophils % % Lymphocytes % % Monocytes % % Eosinophils % % Basophils % % Neutrophils # (1.3-7.7) k/uL Lymphocytes # (1.0-4.8) k/uL Monocytes # (0-1.0) k/uL Eosinophils # (0-0.7) k/uL Basophils # (0-0.2) k/uL PT (10.0-12.5) sec INR (<1.2) APTT (22.0-30.0) sec D-Dimer 0.30 (<0.60) mg/L FEU Sodium 137 (137-145) mmol/L Potassium 4.9 (3.5-5.1) mmol/L Chloride 102 (98-107) mmol/L Carbon Dioxide 25 (22-30) mmol/L Anion Gap 10 mmol/L BUN 18 H (7-17) mg/dL Creatinine 0.69 (0.52-1.04) mg/dL Est GFR (CKD-EPI)AfAm >90 (>60 ml/min/1.73 sqM) Est GFR (CKD-EPI)NonAf >90 (>60 ml/min/1.73 sqM) Glucose 88 (74-99) mg/dL Calcium 9.1 (8.4-10.2) mg/dL Magnesium 1.7 (1.6-2.3) mg/dL Total Bilirubin 1.0 (0.2-1.3) mg/dL AST 34 (14-36) U/L ALT 17 (4-34) U/L Alkaline Phosphatase 53 (38-126) U/L Troponin I <0.012 (0.000-0.034) ng/mL Total Protein 7.2 (6.3-8.2) g/dL Albumin 4.6 (3.5-5.0) g/dL Influenza Type A (PCR) (Not Detectd) Influenza Type B (PCR) (Not Detectd) RSV (PCR) (Not Detectd) SARS-CoV-2 (PCR) (Not Detectd) - Radiology Data Radiology results: report reviewed, image reviewed Disposition Clinical Impression: Bronchitis Disposition: HOME SELF-CARE Condition: Stable Additional Instructions: Continue with [id number]-yblyqfu ibuprofen and Tylenol for fever control. Follow- up with PCP in the next 1 to 2 days for recheck. Return to the ER for any new or worsening concerns Prescriptions: methylPREDNISolone [Medrol Dose Pack] 0 mg PO DIRECTED #1 packet Is patient prescribed a controlled substance at d/c from ED?: No Referrals: Luther Parr Jr, [Primary Care Provider] - 1-2 days Time of Disposition: 11:33
[2024-07-13] MEDS: ACETAMINOPHEN TAB 325 MG TAB PO STA (10:35)
[2024-07-13] MEDS: SODIUM CHLORIDE 0.9% 1,000 ML IV STA (10:37)
[2024-07-13 10:41] LABS: Basophils % (A) 0 %; Eosinophils # (A) 0.2 k/uL (0-0.7); Eosinophils % (A) 2 %; HCT 44.1 % (34.0-46.0); HGB 14.9 gm/dL (11.4-16.0); Lymphocytes % (A) 10 %; MCH 28.9 pg (25.0-35.0); MCHC 33.8 g/dL (31.0-37.0); MCV 85.3 fL (80.0-100.0); Mean Platelet Volume 7.3; Monocytes # (A) 0.3 k/uL (0-1.0); Monocytes % (A) 3 %; Neutrophils # (A) 8.3 k/uL (1.3-7.7); Neutrophils % (A) 84 %; Platelet Count 289 k/uL (150-450); RBC 5.17 m/uL (3.80-5.40); RDW 13.1 % (11.5-15.5); WBC 9.9 k/uL (3.8-10.6)
[2024-07-13] MEDS: KETOROLAC 15 MG/ML 1 ML VIAL IM STA (10:42)
[2024-07-13 10:51] LABS: Influenza A Not Detected (Not Detectd); Influenza B Not Detected (Not Detectd); RSV Not Detected (Not Detectd)
[2024-07-13 10:55] LABS: ALT 17 U/L (4-34); African American GFR (CKD) >90 (>60 ml/min/1.73 sqM); Anion Gap 10 mmol/L; Blood Urea Nitrogen 18 mg/dL (7-17); Calcium 9.1 mg/dL (8.4-10.2); Carbon Dioxide 25 mmol/L (22-30); Chloride 102 mmol/L (98-107); Glucose 88 mg/dL (74-99); Non-African American GFR(CKD) >90 (>60 ml/min/1.73 sqM); Sodium 137 mmol/L (137-145)
[2024-07-13 10:58] LABS: Magnesium 1.7 mg/dL (1.6-2.3); Potassium 4.9 mmol/L (3.5-5.1); Total Protein 7.2 g/dL (6.3-8.2)
[2024-07-13 10:59] LABS: AST 34 U/L (14-36); Albumin 4.6 g/dL (3.5-5.0); Alkaline Phosphatase 53 U/L (38-126)
--- NOTE | 2024-07-13 10:59 | XR ---
Chest, 2 view. HISTORY: Chest pain COMPARISON: 09/07/2023 TECHNIQUE: PA and lateral views the chest are obtained. FINDINGS: The lungs are clear and there is no consolidative or interstitial opacity. There is no pleural effusion or pneumothorax. The heart, pulmonary vasculature, mediastinum and jewel appear normal. The osseous structures are intact. IMPRESSION: No significant abnormality seen. No acute cardiopulmonary disease. [facility], , 07/13/2024 10:57 AM
[2024-07-13 11:00] LABS: Prothrombin Time 10.7 sec (10.0-12.5)
[2024-07-13 11:03] LABS: Partial Thromboplastin Time 19.3 sec (22.0-30.0)
[2024-07-13 11:41] VITALS: BP 129/87; PULSE 100; RESP 20; TEMP 99.8
== END 2024-07-13 11:41 | disposition home or self-care (01) ==
LOC: EC 09:53
DX: J40 Bronchitis, not specified as acute or chronic (principal); F17.290 Nicotine dependence, other tobacco product, uncomplicated
CPT/HCPCS: 36415; 93005; 85379; 80053; 83735; 84484; 85025; 85610; 85730; 87636; 71046; 99284; 96360; 96372; J1885